=== PATIENT | male | born 1955 | race Caucasian/White ===

== ENCOUNTER 2023-03-24 08:07 | Outpatient (OUT) | payer MEDICARE, BC, SELFPAY | END 2023-03-24 08:08 | disposition home or self-care (01) | LOC: VC 08:08 | PROVIDERS: PCP Radiology Diagnostic Radiology; Visit Provider Radiology Diagnostic Radiology | DX: I83.813 Varicose veins of bilateral lower extremities with pain (principal) ==

== ENCOUNTER 2023-04-06 12:21 | Outpatient (OUT) | payer MEDICARE, BC, SELFPAY ==
--- NOTE | 2023-04-06 12:30 | VEIN_ITS ---
Patient: ELLYN LOW Exam Date: 04/06/2023 : 1955 Gender:M Ordering : DR ALMA ROSA KEARNS M.D. Admission #: [id number] Family : Order #: [id number] CLICK HERE TO VIEW EXAM RADIOLOGY REPORT PROCEDURE: VC EXT VENOUS REFLUX IRMA LMTD COMPARISON: None. INDICATIONS: I83.813 Pain due to varicose veins of bilateral leg veins TECHNIQUE: Duplex imaging of the lower extremity to assess the deep and superficial venous system for the presence of deep or superficial venous incompetence and to document the location and severity of disease. The study includes evaluation of the great saphenous vein (GSV), anterior accessory saphenous vein (AASV) and small saphenous vein (SSV). Patient scanned in reverse Trendelenburg and standing. FINDINGS: RIGHT LOWER EXTREMITY: Saphenofemoral Junction Reflux: Yes 10.2mm 4.4 sec GSV: Diam (mm) Reflux/ Time (sec) Proximal Thigh 7.6 Yes 2.7 Mid Thigh 4.3 Yes 3.1 Distal Thigh 4.3 Yes 3.0 Prox Calf 4.3 Yes 3.9 Mid Calf 4.7 Yes 2.9 Saphenopopliteal Junction Reflux: 4.3mm Yes 0.6 SSV: Proximal Calf 5.0 Yes 1.1 Mid Calf 4.1 Yes 0.8 AASV: Proximal Thigh 6.3 Yes 1.1 Mid Thigh 4.0 Yes 1.9 Distal Thigh Thrombi: No acute or chronic thrombus. Compressibility: Normal. Flow: Mild deep venous reflux. Preforator:Dist medial lower leg 2.6 mm with 1.7s reflux. Mid medial lower leg 3.7mm with 1.0s reflux. Tech Note: Incompetent varicose vein distal medial lower leg measures 4.0 mm with 4.2s reflux. Proximal medial lower leg varicose vein measures 4.0 mm with 2.6s reflux. Proximal anterior lower leg varicosity measures 3.0 mm with 2.9s reflux. Varicose vein mid anterior lateral lower leg measures 4.0 mm with 0.9s reflux. LEFT LOWER EXTREMITY: Saphenofemoral Junction Reflux: Yes 9.4 mm 4.4 sec GSV: Diam (mm) Reflux/Time (sec) Proximal Thigh 5.5 No Mid Thigh 3.5 Yes 0.2 Distal Thigh 3.8 No Prox Calf 3.3 Yes 0.2 Mid Calf 2.8 Yes 0.5 Saphenopopliteal Junction Relux: 2.0 mm Yes 0.2 SSV: Proximal Calf 1.8 Yes 0.3 Mid Calf 3.5 Yes 0.7 AASV: Proximal Thigh 4.4 Yes 2.5 Mid Thigh 3.5 Yes 0.3 Distal Thigh Thrombi: No acute or chronic thrombus. Compressibility: Normal. Flow: Moderate deep venous reflux. Gate Attendant: Mid posterior calf 4.1 mm with 0.8s reflux. Distal medial lower leg 4.3 mm with 4.8s reflux. Mid medial lower leg 3.2 mm with 0.8s reflux. Tech Note: Thigh extension of left SSV. Incompetent varicose vein mid medial lower leg measures 3.1 mm with 2.7s reflux. Proximal medial lower leg varicose vein measures 2.2 mm with 2.8s reflux. CONCLUSION: 1. Abnormally dilated and incompetent right great saphenous vein, right anterior accessory saphenous vein, and borderline right small saphenous vein. Multiple dilated and incompetent branch saphenous varicosities within the right leg. 2. Incompetent, but not abnormally dilated left anterior accessory saphenous vein. Dictated by: Og Pruitt M.D. on 04/06/2023 at 13:35 Approved by: Og Pruitt M.D. on 04/06/2023 at 14:11
--- NOTE | 2023-04-06 12:30 | VEIN_ITS ---
Patient: ELLYN LOW Exam Date: 04/06/2023 : 1955 Gender:M Ordering : DR ALMA ROSA KEARNS M.D. Admission #: [id number] Family : Order #: [id number] CLICK HERE TO VIEW EXAM RADIOLOGY REPORT PROCEDURE: FACILITY [facility] VEIN CENTER - OFFICE VISIT INITIAL COMPARISON: None. PROGRESS NOTES: [age] year old male who presents with a 10 year history of dilated bulging veins, discolored veins, leg pain, swelling, itching, heaviness. The patient's right leg symptoms are worse than the left. There has been a progression of symptoms over past 10 years. This increases with prolonged leg dependency. The patient describes an improvement with rest, elevation, and exercise. The patient denies any signs and symptoms to suggest arterial ischemia. The patient describes a family history varicose veins on maternal side. The patient has drinking and smoking history of : Occasional alcohol consumption; no tobacco use. Patient has a past medical history significant for hypertension, diabetes mellitus, asthma. The patient denies a history of deep venous thrombus or pulmonary embolus. See separate history and physical for medication list. No prior treatment for varicose or spider veins. Past treatment included use of compression stockings. After review of nurse notes, history and physical exam I discussed at length the pathophysiology of venous hypertension and possible treatments, therapies and strategies available. We discussed at length the importance of elevating the lower extremities above the level of the heart, increased physical activity and compression stocking use. Ultrasound venous reflux study performed today was discussed at length with the patient. The report demonstrates dilated and incompetent right great saphenous vein, anterior accessory saphenous vein, and borderline small saphenous vein. Multiple dilated and incompetent branch saphenous varicosities on the right; a few on left.. PHYSICAL EXAM: The right leg demonstrates multiple varicosities, numerous reticular veins and spider veins, no ulceration, mild edema, no skin discoloration. The left leg demonstrates a few varicosities, multiple reticular veins and spider veins, no ulceration, no edema, no skin discoloration. Both thighs, legs and feet were symmetrically warm to the touch. Good posterior tibial and dorsalis pedis pulses were present bilaterally. VEIN/ Facility [facility] Comprehensive IMPRESSION: 1. Right lower extremity venous insufficiency 2. Bilateral, but predominantly right lower extremity varicose veins 3. Mild right lower extremity subcutaneous edema 4. No flow significant arterial disease 5. CEAP: C3, EC, AP, FL PLAN: 1. Continued use of compression stockings 2. Elevated legs and increased physical activity symptomatic relief 3. Endovenous laser ablation of right great saphenous and anterior accessory saphenous veins. Follow-up ultrasound evaluation of right small saphenous vein after treatment of the great and anterior accessory saphenous veins. 4. Microfoam chemical ablation of branch saphenous varicosities bilaterally. 5. Sclerotherapy of numerous prominent reticular veins and spider veins bilaterally. Nurse notes, history and physical were reviewed and confirmed, see attached forms. The nurse was present throughout the physical exam and consultation Dictated by: Og Pruitt M.D. on 04/06/2023 at 14:11 Approved by: Og Pruitt M.D. on 04/06/2023 at 14:22
== END 2023-04-06 12:22 | disposition home or self-care (01) ==
LOC: VC 12:21
PROVIDERS: PCP Radiology Diagnostic Radiology; Visit Provider Radiology Diagnostic Radiology
DX: I83.813 Varicose veins of bilateral lower extremities with pain (principal)
CPT/HCPCS: 93970; G0463

== ENCOUNTER 2023-04-10 12:24 | Outpatient (OUT) | payer MEDICARE, BC, SELFPAY ==
--- NOTE | 2023-04-10 | VEIN_ITS ---
[address] [address] Patient Name: ELLYN LOW MRN: [id number] date: 1955 Sex: M Assigned Patient Location: Current Patient Location: Accession/Order Number: [id number] Exam Date: 04/10/2023 12:45 Report Date: 04/10/2023 13:37 At the request of: ALMA ROSA KEARNS Procedure: VC Endovenous Ablation 1VeinRT EXAMINATION: VC Endovenous Ablation 1Vein, right great saphenous vein HISTORY: Pain due to varicose veins of bilateral legs I83.813 COMPARISON: No relevant comparison available. TECHNIQUE: The risks and benefits of the procedure had been previously discussed, and were rediscussed at length. Informed written consent was obtained. [facility] and Colton Ojeda assisted. Time out procedure was performed. The right lower extremity was prepared and draped in the usual sterile fashion to allow knee flexion in the sterile field. Duplex ultrasound probe was draped in a sterile cover, sterile transmission gel was used. Venous mapping was performed with the areas of dilation and large tributaries marked. The total length was 61 cm from the entry 6 cm above the medial malleolus to 3 cm below the saphenofemoral junction. The diameter of the greater saphenous vein ranged from 4-8 mm. A 30 gauge needle and 1% buffered lidocaine was used to anesthetize the entry site. A 4 mm incision was made with a scalpel and the saphenous vein was entered percutaneously under direct ultrasound guidance with a micropuncture set, a single stick was successful in gaining access. A micro-guide wire was inserted and the needle removed. A micro-set including a dilator was inserted over the microwire and the needle and dilator were removed. A 0.018 guide wire was inserted through the micro-set and threaded through the saphenous vein to the saphenofemoral junction. The dilator was removed and an introducer sheath was inserted over the wire until the end of the sheath entered the saphenofemoral junction. The dilator and wire were removed and the 600 micron fiber was introduced and placed and positioned so that it extended beyond the sheath and was 3 cm peripheral to the saphenofemoral femoral junction. Final position of the fiber was determined by ultrasound guidance and duplex imaging. Tumescent anesthetic was delivered by ultrasound guidance. 250 cc of fluid was delivered along the entire course of the saphenous vein. The solution consisted of 1000 cc of normal saline with 40 mL of 1% lidocaine and 20 mL of sodium bicarbonate. A final positioning check was made. The energy source was turned on by means of the foot pedal and the fiber and sheath were withdrawn. The total number of Joules delivered was 2922. The laser was active for 365 seconds under continuous pulse, average laser use of 8 J. Laser start time 1310 04/10/2023 . Laser stop time 1317 04/10/2023 . A duplex ultrasound revealed compressibility and flow at the saphenofemoral junction immediately after the procedure. Hemostasis at the access site was achieved. The skin incision of the saphenous vein was closed with a 4 x 4. A compression stocking was applied. Postop instructions were given. A follow up appointment was recommended and scheduled. The patient tolerated the procedure well and was discharged in good condition . VEIN/VC Endovenous Ablation 1VeinRT IMPRESSION: Technically successful endovenous laser ablation of the right great saphenous vein Electronically authenticated by: ALMA ROSA KEARNS Date: 04/10/2023 13:37
[2023-04-10] MEDS: LIDOCAINE HCL 10 ML, SODIUM BICARBONATE 1 MEQ INJ (13:05)
[2023-04-10] MEDS: 0.9 % SODIUM CHLORIDE 500 ML, LIDOCAINE HCL 20 ML, SODIUM BICARBONATE 10 MEQ INJ (13:06)
== END 2023-04-10 12:25 | disposition home or self-care (01) ==
LOC: VC 12:24
PROVIDERS: PCP Radiology Diagnostic Radiology; Visit Provider Radiology Diagnostic Radiology
DX: I83.813 Varicose veins of bilateral lower extremities with pain (principal)
CPT/HCPCS: 36478

== ENCOUNTER 2023-04-15 09:24 | Outpatient (OUT) | payer MEDICARE, BC, SELFPAY ==
--- NOTE | 2023-04-15 | VEIN_ITS ---
Patient: ELLYN LOW Exam Date: 04/15/2023 : 1955 Gender:M Ordering : DR ALMA ROSA KEARNS M.D. Admission #: [id number] Family : Order #: [id number] CLICK HERE TO VIEW EXAM RADIOLOGY REPORT PROCEDURE: VC EXT VENOUS RT LMTD COMPARISON: None. INDICATIONS: Phlebitis of superficial veins of rt lower extremity I80.01 TECHNIQUE: Lower extremity lawson scale and Duplex Doppler evaluation of the deep venous system from the inguinal ligament through the calf veins. FINDINGS: REGION: Right lower extremity. THROMBI: Negative for DVT. Heat induced thrombus in right GSV 2.9 cm from SFJ and extends to distal lower leg. COMPRESSIBILITY: Non-compressible segments. FLOW: Areas of no flow. OTHER: CONCLUSION: 1. Successful post ablation occlusion of right great saphenous vein. Dictated by: Og Pruitt M.D. on 04/15/2023 at 10:29 Approved by: Og Pruitt M.D. on 04/15/2023 at 10:31
--- NOTE | 2023-04-15 | VEIN_ITS ---
Patient: ELLYN LOW Exam Date: 04/15/2023 : 1955 Gender:M Ordering : DR ALMA ROSA KEARNS M.D. Admission #: [id number] Family : Order #: [id number] CLICK HERE TO VIEW EXAM RADIOLOGY REPORT PROCEDURE: FACILITY EST L[facility]D VEIN CENTER - OFFICE VISIT FOLLOW UP COMPARISON: None. PROGRESS NOTES: The patient reports improvement in leg symptoms. There has been interval reduction in varicosities. The patient has followed our recommendations to walk 20-30 minutes once or twice per day since the procedure. Physical exam demonstrates decrease in varicosities of the leg. Persistent varicosities are identified along the right leg. Review of the ultrasound performed the same day demonstrates occlusive thrombus extending throughout the treated vein(s), see separate report, consistent with a successful ablation. No thrombus extending into or beyond the saphenofemoral junction. The patient expressed a desire to proceed with treatment of remaining incompetent varicosities. The patient was informed that treatment was a process and would require several procedures/sessions. VEIN/ Facility EST LMTD IMPRESSION: 1. Successful ablation of the right great saphenous vein(s). 2. Persistent incompetent veins and right lower extremity symptoms. PLAN: Endovenous laser ablation of right anterior accessory saphenous vein. Nurse notes, history and physical were reviewed and confirmed, see attached forms. The nurse was present throughout the physical exam and consultation Dictated by: Og Pruitt M.D. on 04/15/2023 at 10:31 Approved by: Og Pruitt M.D. on 04/15/2023 at 10:33
== END 2023-04-15 09:25 | disposition home or self-care (01) ==
LOC: VC 09:25
PROVIDERS: PCP Radiology Diagnostic Radiology; Visit Provider Radiology Diagnostic Radiology
DX: I80.01 Phlebitis and thrombophlebitis of superficial vessels of right lower extremity (principal); I83.813 Varicose veins of bilateral lower extremities with pain
CPT/HCPCS: 93971; G0463

== ENCOUNTER 2023-04-24 12:20 | Outpatient (OUT) | payer MEDICARE, BC, SELFPAY ==
--- NOTE | 2023-04-24 | VEIN_ITS ---
[address] [address] Patient Name: ELLYN LOW MRN: [id number] date: 1955 Sex: M Assigned Patient Location: Current Patient Location: Accession/Order Number: [id number] Exam Date: 04/24/2023 12:35 Report Date: 04/24/2023 13:54 At the request of: ALMA ROSA KEARNS Procedure: VC Endovenous Ablation 1VeinRT EXAMINATION: VC Endovenous Ablation 1Vein right anterior accessory saphenous vein HISTORY: Pain due to varicose veins of bilateral legs I83.813 COMPARISON: No relevant comparison available. TECHNIQUE: The risks and benefits of the procedure had been previously discussed, and were rediscussed at length. Informed written consent was obtained. Jesenia Pedroza and Colton Ojeda assisted. Time out procedure was performed. The right lower extremity was prepared and draped in the usual sterile fashion to allow knee flexion in the sterile field. Duplex ultrasound probe was draped in a sterile cover, sterile transmission gel was used. Venous mapping was performed with the areas of dilation and large tributaries marked. The total length was 18 cm from the entry mid thigh to 3 cm below the saphenofemoral junction. The diameter of the greater saphenous vein ranged from 4-7 mm. A 30 gauge needle and 1% buffered lidocaine was used to anesthetize the entry site. A 4 mm incision was made with a scalpel and the saphenous vein was entered percutaneously under direct ultrasound guidance with a micropuncture set, a single stick was successful in gaining access. A micro-guide wire was inserted and the needle removed. A micro-set including a dilator was inserted over the microwire and the needle and dilator were removed. A 0.018 guide wire was inserted through the micro-set and threaded through the saphenous vein to the saphenofemoral junction. The dilator was removed and an introducer sheath was inserted over the wire until the end of the sheath entered the saphenofemoral junction. The dilator and wire were removed and the 600 micron fiber was introduced and placed and positioned so that it extended beyond the sheath and was 3 cm peripheral to the saphenofemoral femoral junction. Final position of the fiber was determined by ultrasound guidance and duplex imaging. Tumescent anesthetic was delivered by ultrasound guidance. 125 cc of fluid was delivered along the entire course of the saphenous vein. The solution consisted of 1000 cc of normal saline with 40 mL of 1% lidocaine and 20 mL of sodium bicarbonate. A final positioning check was made. The energy source was turned on by means of the foot pedal and the fiber and sheath were withdrawn. The total number of Joules delivered was 788. The laser was active for 98 seconds under continuous pulse, average laser use of 8 J. Laser start time 1:06 PM 04/24/2023 . Laser stop time 1:08 PM and 04/24/2023 . A duplex ultrasound revealed compressibility and flow at the saphenofemoral junction immediately after the procedure. Hemostasis at the access site was achieved. The skin incision of the saphenous vein was closed with a 4 x 4. A compression stocking was applied. Postop instructions were given. A follow up appointment was recommended and scheduled. The patient tolerated the procedure well and was discharged in good condition . VEIN/VC Endovenous Ablation 1VeinRT IMPRESSION: Technically successful endovenous laser ablation of the right anterior accessory saphenous vein Electronically authenticated by: ALMA ROSA KEARNS Date: 04/24/2023 13:54
[2023-04-24] MEDS: 0.9 % SODIUM CHLORIDE 500 ML, LIDOCAINE HCL 20 ML, SODIUM BICARBONATE 10 MEQ INJ (12:56)
== END 2023-04-24 12:21 | disposition home or self-care (01) ==
LOC: VC 12:20
PROVIDERS: PCP Radiology Diagnostic Radiology; Visit Provider Radiology Diagnostic Radiology
DX: I83.813 Varicose veins of bilateral lower extremities with pain (principal)
CPT/HCPCS: 36478

== ENCOUNTER 2023-04-30 12:48 | Outpatient (OUT) | payer MEDICARE, BC, SELFPAY ==
--- NOTE | 2023-04-30 | VEIN_ITS ---
Patient: ELLYN LOW Exam Date: 04/30/2023 : 1955 Gender:M Ordering : DR ALMA ROSA KEARNS M.D. Admission #: [id number] Family : Order #: [id number] CLICK HERE TO VIEW EXAM RADIOLOGY REPORT PROCEDURE: [facility] EST [facility] VEIN CENTER - OFFICE VISIT FOLLOW UP [facility]. PROGRESS NOTES: The patient reports improvement in leg symptoms. There has been interval reduction in varicosities. The patient has followed our recommendations to walk 20-30 minutes once or twice per day since the procedure. Physical exam demonstrates decrease in varicosities of the leg. Persistent branch saphenous varicosities are identified along the legs bilaterally. Review of the ultrasound performed the same day demonstrates occlusive thrombus extending throughout the treated vein(s), see separate report, consistent with a successful ablation. No thrombus extending into or beyond the saphenofemoral junction. The patient expressed a desire to proceed with treatment of dilated and incompetent branch saphenous varicosities. The patient was informed that treatment was a process and would require several procedures/sessions. VEIN/[facility] EST LMTD IMPRESSION: 1. Successful ablation of the right anterior accessory saphenous vein(s). 2. Persistent incompetent varicose veins and lower extremity symptoms. PLAN: 1. Microfoam chemical ablation of dilated and incompetent branch saphenous varicosities of lower extremities. Nurse notes, history and physical were reviewed and confirmed, see attached forms. The nurse was present throughout the physical exam and consultation Dictated by: Og Pruitt M.D. on 04/30/2023 at 13:58 Approved by: Og Pruitt M.D. on 04/30/2023 at 13:59
--- NOTE | 2023-04-30 | VEIN_ITS ---
Patient: ELLYN LOW Exam Date: 04/30/2023 : 1955 Gender:M Ordering : DR ALMA ROSA KEARNS M.D. Admission #: [id number] Family : Order #: [id number] CLICK HERE TO VIEW EXAM RADIOLOGY REPORT PROCEDURE: VC EXT VENOUS RT LMTD COMPARISON: VC EXT VENOUS RT LMTD, 04/15/2023. INDICATIONS: Phlebitis of superficial veins of rt. lower extremity I80.01 TECHNIQUE: Lower extremity lawson scale and Duplex Doppler evaluation of the deep venous system from the inguinal ligament through the calf veins. FINDINGS: REGION: Right lower extremity. THROMBI: Negative for DVT. Heat induced thrombus visualized 2.8 cm from the SFJ. The heat induced thrombus extends through the AASV to mid thigh. COMPRESSIBILITY: Non-compressible segments. FLOW: Areas of no flow. OTHER: CONCLUSION: 1. Successful post ablation occlusion of right anterior accessory saphenous vein. Dictated by: Og Pruitt M.D. on 04/30/2023 at 13:57 Approved by: Og Pruitt M.D. on 04/30/2023 at 13:58
== END 2023-04-30 12:49 | disposition home or self-care (01) ==
LOC: VC 12:48
PROVIDERS: PCP Radiology Diagnostic Radiology; Visit Provider Radiology Diagnostic Radiology
DX: I80.01 Phlebitis and thrombophlebitis of superficial vessels of right lower extremity (principal)
CPT/HCPCS: 93971; G0463

== ENCOUNTER 2023-05-05 13:53 | Outpatient (OUT) | payer MEDICARE, BC, SELFPAY ==
--- NOTE | 2023-05-05 | VEIN_ITS ---
[address] [address] Patient Name: ELLYN LOW MRN: [id number] date: 1955 Sex: M Assigned Patient Location: Current Patient Location: Accession/Order Number: [id number] Exam Date: 05/05/2023 14:00 Report Date: 05/05/2023 16:02 At the request of: ALMA ROSA KEARNS Procedure: VC INJ Foam Sclerosant WUS TRAFFIC COUNTER PROCEDURE: VC INJ Foam Sclerosant WUS TRAFFIC COUNTER HISTORY: Pain due to varicose veins of bilateral legs I83.813 Pre-operative Diagnosis: CEAP class C3 venous insufficiency with pain, tenderness, edema and incompetent branch saphenous vein(s), chronic venous insufficiency right leg secondary to venous incompetence Post-operative Diagnosis: CEAP class C3 venous insufficiency with pain, tenderness, edema and incompetent branch saphenous vein(s), chronic venous insufficiency right leg secondary to venous incompetence Procedure Performed: 1. Ultrasound-guided microfoam chemical ablation with Varithenaregistered 2. Intraoperative ultrasound guidance Physician: Lana Pruitt M.D. Anesthesia: None Indications for Procedure: 67 year old male. Symptoms including lower extremity pain, cramping, swelling, discolored bulging veins for many years despite conservative medical therapy including medical compression stockings, exercise and analgesics. Prior procedures include endovenous laser ablation. Multiple incompetent varicosities of the right leg. Duplex scan showed reflux and enlarged diameters up to 4 mm. The patient underwent informed consent including management options where the complications of infection, bleeding, pain, and skin injury were discussed. Particular attention was spent discussing thrombus extension and deep vein thrombosis as well as the possibility of pulmonary embolus and treatment with oral or injectable blood thinners. Procedure: The patient walked to the procedure room. All applicable staff donned appropriate apparel. A procedure timeout was performed to confirm correct patient, correct extremity, correct procedure, and correct room set-up including presence of all applicable supplies, devices, and drugs. A duplex ultrasound, performed by myself confirmed the location and incompetence of branch saphenous varicosities and their course was marked on the skin together with the dilated tributaries. The extent of treatment of the vein and the associated varicosities was determined through ultrasound mapping. The skin was prepped and then punctured with a butterfly needle and advanced under ultrasound guidance. The Varithenaregistered canister was activated and the canister was primed and purged as required in the instructions for use. Varithenaregistered was drawn into a sterile syringe. Varithenaregistered was slowly administered at 0.5-1.0 cc/second with close observation by ultrasound of its course in the vessels. Total volume utilized was: 7 mL (4 mL injected into a 4 mm varicosity of the lateral mid thigh; 3 mL into a 3 mm varicosity of the posterior proximal calf. Following administration of Varithenaregistered the leg was elevated and the patient was asked to repeatedly dorsiflex the ankle to limit flow of Varithenaregistered into perforating veins. Once appropriate spasm had been confirmed in the treated veins, the vascular catheter was removed from the leg and light pressure was applied over the puncture site for hemostasis. The common femoral and deep superficial veins were then evaluated for flow and compressibility prior to dressing placement. The lower extremity was kept elevated at 45 degrees above the horizontal and cording material was applied over the saphenous segments and tributaries to allow for eccentric compression over the target vessels including the targeted saphenous vein(s). A multilayer dressing was applied consisting of foam pads, coban and thigh-high 20-30 mm Hg compression elastic support hose were placed on the patient. The leg was lowered only after compression had been applied and the patient was immediately ambulatory. The patient ambulated 10 minutes under supervision and was without apparent concerns at time of release. Post-care instructions include advising patient to keep post-treatment bandages in place and dry for 48 hours, avoid extended periods of inactivity, avoid heavy exercise for one week, wear compression stockings on the treated leg continuously for two weeks, to walk daily for 10 minutes over the next month. The patient was instructed to take an anti-inflammatory medicine as needed and to follow up for color duplex scan of the Saphenous veins, the treated branch saphenous varicosities, the adjacent deep veins, and additional treatment within 7 days. PERSONNEL: Electronically authenticated by: LANA PRUITT Date: 05/05/2023 16:02
== END 2023-05-05 13:54 | disposition home or self-care (01) ==
LOC: VC 13:53
PROVIDERS: PCP Radiology Diagnostic Radiology; Visit Provider Radiology Diagnostic Radiology
DX: I83.813 Varicose veins of bilateral lower extremities with pain (principal)
CPT/HCPCS: 36466

== ENCOUNTER 2023-05-12 13:52 | Outpatient (OUT) | payer MEDICARE, BC, SELFPAY ==
--- NOTE | 2023-05-12 13:53 | VEIN_ITS ---
Patient: ELLYN LOW Exam Date: 05/12/2023 : 1955 Gender:M Ordering : DR JONAS LOVE M.D. Admission #: [id number] Family : Order #: [id number] CLICK HERE TO VIEW EXAM RADIOLOGY REPORT PROCEDURE: VC EXT VENOUS RT LMTD COMPARISON: VC EXT VENOUS RT LMTD, 04/30/2023. VC EXT VENOUS RT LMTD, 04/15/2023. INDICATIONS: I80.01 Phlebitis of superficial veins of rt lower extremity TECHNIQUE: Lower extremity lawson scale and Duplex Doppler evaluation of the deep venous system from the inguinal ligament through the calf veins. FINDINGS: REGION: Right lower extremity. THROMBI: Negative for DVT. Varithena induced thrombus visualized at mid/med thigh and prox/lateral calf. COMPRESSIBILITY: Non-compressible segments. FLOW: Areas of absent flow corresponding to thrombus. OTHER: No varicose veins remain CONCLUSION: Post ablation occlusion of treated right leg varicose veins. Dictated by: Jonas Love MD on 05/12/2023 at 14:18 Approved by: Jonas Love MD on 05/12/2023 at 14:19
--- NOTE | 2023-05-12 13:53 | VEIN_ITS ---
Patient: ELLYN LOW Exam Date: 05/12/2023 : 1955 Gender:M Ordering : DR JONAS LOVE M.D. Admission #: [id number] Family : Order #: [id number] CLICK HERE TO VIEW EXAM RADIOLOGY REPORT PROCEDURE: FACILITY EST LMTD VEIN CENTER - OFFICE VISIT FOLLOW UP COMPARISON: FACILITY EST LMTD, 04/30/2023. FACILITY EST LMTD, 04/15/2023. PROGRESS NOTES: The patient reports improvement in leg symptoms. The patient had no problems funneling of micro foam chemical ablation right leg varicosities. There has been interval reduction in varicosities. The patient did not require oral analgesics. The patient has worn his compression stocking as directed. The patient has followed our recommendations to walk 20-30 minutes once or twice per day since the procedure. Physical exam demonstrates scattered thrombosed varicose veins. Remaining reticular and spider veins are observed. Areas of mild hemosiderin staining. This was discussed with the patient and I recommended mechanical sunblock or covering from sun exposure to prevent permanent hemosiderin staining or Review of the ultrasound performed the same day demonstrates occlusive thrombus extending throughout the treated right leg varicose veins. No significant residual varicose veins. Treatment of the right small saphenous and left anterior accessory saphenous vein are deferred at this time as the patient has no discomfort in these regions. The patient expressed a desire to proceed with treatment of incompetent left leg varicose veins with micro foam chemical ablation. VEIN/ Facility EST LMTD IMPRESSION: 1. Successful ablation of treated incompetent right leg varicose veins 2. Persistent incompetent left leg varicose veins. PLAN: Micro foam chemical ablation of the left leg Nurse notes, history and physical were reviewed and confirmed, see attached forms. The nurse was present throughout the physical exam and consultation Dictated by: Jonas Love MD on 05/12/2023 at 14:34 Approved by: Jonas Love MD on 05/12/2023 at 14:36
== END 2023-05-12 13:53 | disposition home or self-care (01) ==
PROVIDERS: PCP Radiology Diagnostic Radiology; Visit Provider Radiology Diagnostic Radiology
DX: I80.01 Phlebitis and thrombophlebitis of superficial vessels of right lower extremity (principal)
CPT/HCPCS: 93971; G0463

== ENCOUNTER 2023-05-22 09:51 | Outpatient (OUT) | payer MEDICARE, BC, SELFPAY ==
--- NOTE | 2023-05-22 10:09 | VEIN_ITS ---
[address] [address] Patient Name: ELLYN LOW MRN: [id number] date: 1955 Sex: M Assigned Patient Location: Current Patient Location: Accession/Order Number: [id number] Exam Date: 05/22/2023 10:15 Report Date: 05/22/2023 12:39 At the request of: ALMA ROSA KEARNS Procedure: VC INJ Foam Sclerosant WUS PET CARE ATTENDANT PROCEDURE: VC INJ Foam Sclerosant WUS PET CARE ATTENDANT COMPARISON: None. HISTORY: I83.813 Painful varicose veins of bilat lower extremities Pre-operative Diagnosis: CEAP class C3 venous insufficiency with pain, tenderness, edema and incompetent left great saphenous vein and varicose veins, chronic venous insufficiency left leg secondary to venous incompetence Post-operative Diagnosis: CEAP class C3 venous insufficiency with pain, tenderness, edema and incompetent left great saphenous vein and varicose veins, chronic venous insufficiency left leg secondary to venous incompetence Procedure Performed: 1. Ultrasound-guided microfoam chemical ablation with Varithenaregistered 2. Intraoperative ultrasound guidance Anesthesia: None Indications for Procedure: 68-year-old male . Symptoms including pain and swelling for many years despite conservative medical therapy including medical compression stockings, exercise and analgesics. Prior procedures include endovenous laser ablation a micropuncture relation. Multiple incompetent varicosities of the left leg. Duplex scan showed reflux and enlarged diameters up to 4 mm. The patient underwent informed consent including management options where the complications of infection, bleeding, pain, and skin injury were discussed. Particular attention was spent discussing thrombus extension and deep vein thrombosis as well as the possibility of pulmonary embolus and treatment with oral or injectable blood thinners. Procedure: The patient walked to the procedure room. All applicable staff donned appropriate apparel. A procedure timeout was performed to confirm correct patient, correct extremity, correct procedure, and correct room set-up including presence of all applicable supplies, devices, and drugs. A duplex ultrasound, performed by myself confirmed the location and incompetence of branch saphenous varicosities and their course was marked on the skin together with the dilated tributaries. The extent of treatment of the vein and the associated varicosities was determined through ultrasound mapping. The skin was prepped and then punctured with a butterfly needle and advanced under ultrasound guidance. The Varithenaregistered canister was activated and the canister was primed and purged as required in the instructions for use. Varithenaregistered was drawn into a sterile syringe. The following injections were made: 5 cc injected into a 5 mm varicose vein distal left great saphenous vein 4 cc injected into a 4 mm varicose vein mid medial left thigh Varithenaregistered was slowly administered at 0.5-1.0 cc/second with close observation by ultrasound of its course in the vessels. Total volume utilized was: 9cc. Following administration of Varithenaregistered the leg was elevated and the patient was asked to repeatedly dorsiflex the ankle to limit flow of Varithenaregistered into perforating veins. Once appropriate spasm had been confirmed in the treated veins, the vascular catheter was removed from the leg and light pressure was applied over the puncture site for hemostasis. The common femoral and deep superficial veins were then evaluated for flow and compressibility prior to dressing placement. The lower extremity was kept elevated at 45 degrees above the horizontal and cording material was applied over the saphenous segments and tributaries to allow for eccentric compression over the target vessels including the targeted saphenous vein(s). A multilayer dressing was applied consisting of foam pads, coban and thigh-high 20-30 mm Hg compression elastic support hose were placed on the patient. The leg was lowered only after compression had been applied and the patient was immediately ambulatory. The patient ambulated 10 minutes under supervision and was without apparent concerns at time of release. Post-care instructions include advising patient to keep post-treatment bandages in place and dry for 48 hours, avoid extended periods of inactivity, avoid heavy exercise for one week, wear compression stockings on the treated leg continuously for two weeks, to walk daily for 10 minutes over the next month. The patient was instructed to take an anti-inflammatory medicine as needed and to follow up for color duplex scan of the Saphenous veins, the treated branch saphenous varicosities, the adjacent deep veins, and additional treatment within 7 days. PERSONNEL: Kavya Anne RN Electronically authenticated by: ALMA ROSA KEARNS Date: 05/22/2023 12:39
== END 2023-05-22 09:52 | disposition home or self-care (01) ==
LOC: VC 09:51
PROVIDERS: PCP Radiology Diagnostic Radiology; Visit Provider Radiology Diagnostic Radiology
DX: I83.813 Varicose veins of bilateral lower extremities with pain (principal)
CPT/HCPCS: 36466

== ENCOUNTER 2023-05-26 08:50 | Outpatient (OUT) | payer MEDICARE, BC, SELFPAY ==
--- NOTE | 2023-05-26 08:51 | VEIN_ITS ---
Patient: ELLYN LOW Exam Date: 05/26/2023 : 1955 Gender:M Ordering : DR ALMA ROSA KEARNS M.D. Admission #: [id number] Family : Order #: [id number] CLICK HERE TO VIEW EXAM RADIOLOGY REPORT PROCEDURE: [facility] EST LMTD VEIN CENTER - OFFICE VISIT FOLLOW UP COMPARISON: [facility], 05/12/2023. PROGRESS NOTES: The patient reports improvement in leg symptoms. There has been interval reduction in varicosities. The patient has followed our recommendations to walk 20-30 minutes once or twice per day since the procedure. Physical exam demonstrates decrease in varicosities of the leg. Persistent prominent reticular and spider veins are identified along the legs bilaterally. Review of the ultrasound performed the same day demonstrates occlusive thrombus extending throughout the treated vein(s), see separate report, consistent with a successful ablation. No thrombus extending into or beyond the saphenofemoral junction. The patient expressed a desire to proceed with treatment of reticular veins and spider veins. The patient was informed that treatment was a process and would require 2-4 procedures/sessions. VEIN/[facility] EST TD IMPRESSION: 1. Successful ablation of the treated incompetent branch saphenous vein(s). 2. Persistent reticular and spider veins bilaterally. PLAN: Bilateral lower extremities sclerotherapy. Nurse notes, history and physical were reviewed and confirmed, see attached forms. The nurse was present throughout the physical exam and consultation Dictated by: Og Pruitt M.D. on 05/26/2023 at 11:05 Approved by: Og Pruitt M.D. on 05/26/2023 at 11:06
--- NOTE | 2023-05-26 08:51 | VEIN_ITS ---
Patient: ELLYN LOW Exam Date: 05/26/2023 : 1955 Gender:M Ordering : DR ALMA ROSA KEARNS M.D. Admission #: [id number] Family : Order #: [id number] CLICK HERE TO VIEW EXAM RADIOLOGY REPORT PROCEDURE: VC EXT VENOUS LT LIMITED COMPARISON: None. INDICATIONS: I80.02 Phlebitis of superficial veins of lt lower extremity TECHNIQUE: Lower extremity lawson scale and Duplex Doppler evaluation of the deep venous system from the inguinal ligament through the calf veins. FINDINGS: REGION: Left lower extremity. THROMBI: Negative for DVT. Varithena induced thrombus visualized at distal GSV and dist/med thigh. COMPRESSIBILITY: Non-compressible segments. FLOW: Areas of no flow. OTHER: No patent varicose veins remain CONCLUSION: 1. Successful post ablation occlusion of treated branch saphenous varicosities. Dictated by: Og Pruitt M.D. on 05/26/2023 at 11:03 Approved by: Og Pruitt M.D. on 05/26/2023 at 11:05
== END 2023-05-26 08:51 | disposition home or self-care (01) ==
PROVIDERS: PCP Radiology Diagnostic Radiology; Visit Provider Radiology Diagnostic Radiology
DX: I80.02 Phlebitis and thrombophlebitis of superficial vessels of left lower extremity (principal)
CPT/HCPCS: 93971; G0463

== ENCOUNTER 2023-06-02 13:48 | Outpatient (OUT) | payer MEDICARE, BC, SELFPAY ==
--- NOTE | 2023-06-02 | VEIN_ITS ---
[address] [address] Patient Name: ELLYN LOW MRN: [id number] date: 1955 Sex: M Assigned Patient Location: VC Current Patient Location: VC Accession/Order Number: [id number] Exam Date: 06/02/2023 13:58 Report Date: 06/02/2023 14:40 At the request of: ALMA ROSA KEARNS Procedure: VC INJ Sclerosing SOLMULT Vein EXAMINATION: VC INJ Sclerosing SOLMULT Vein HISTORY: Pain due to varicose veins of bilateral legs I83.813 COMPARISON: No relevant comparison available. TECHNIQUE: The risks and benefits of the procedure were explained at length to the patient and informed written consent was obtained. Kavya Anne was present and assisted. The procedure was performed under sterile technique. The patient's leg was wrapped with Coban and postprocedural verbal and written instructions provided. SCLEROSANT: 4 cc, 0.5% polidocanol VEIN(S) INJECTED: 25 veins in the right leg VISUALIZATION: Ultrasound was not used to visualize the sclerosant ANESTHESIA: Supercooled air COMPLICATIONS: None VEIN/VC INJ Sclerosing SOLMULT Vein IMPRESSION: Technically successful sclerotherapy as described Electronically authenticated by: ALMA ROSA KEARNS Date: 06/02/2023 14:40
== END 2023-06-02 13:49 | disposition home or self-care (01) ==
LOC: VC 13:48
PROVIDERS: PCP Radiology Diagnostic Radiology; Visit Provider Radiology Diagnostic Radiology
DX: I83.813 Varicose veins of bilateral lower extremities with pain (principal)
CPT/HCPCS: 36471

== ENCOUNTER 2023-06-11 10:57 | Outpatient (OUT) | payer MEDICARE, BC, SELFPAY ==
--- NOTE | 2023-06-11 10:58 | VEIN_ITS ---
[address] [address] Patient Name: ELLYN LOW MRN: [id number] date: 1955 Sex: M Assigned Patient Location: VC Current Patient Location: VC Accession/Order Number: [id number] Exam Date: 06/11/2023 11:00 Report Date: 06/11/2023 13:47 At the request of: ALMA ROSA KEARNS Procedure: VC INJ Sclerosing SOLMULT Vein EXAMINATION: VC INJ Sclerosing SOLMULT Vein HISTORY: Pain due to varicose veins of bilateral legs I83.813 COMPARISON: No relevant comparison available. TECHNIQUE: The risks and benefits of the procedure were explained at length to the patient and informed written consent was obtained. Kavya Anne was present and assisted. The procedure was performed under sterile technique. The patient's leg was wrapped with Coban and postprocedural verbal and written instructions provided. SCLEROSANT: 4 cc, 0.5% polidocanol VEIN(S) INJECTED: 27 veins in the left leg VISUALIZATION: Ultrasound was not used to visualize the sclerosant ANESTHESIA: Supercooled air COMPLICATIONS: None VEIN/VC INJ Sclerosing SOLMULT Vein IMPRESSION: Technically successful sclerotherapy as described Electronically authenticated by: ALMA ROSA KEARNS Date: 06/11/2023 13:47
== END 2023-06-11 10:58 | disposition home or self-care (01) ==
LOC: VC 10:57
PROVIDERS: PCP Radiology Diagnostic Radiology; Visit Provider Radiology Diagnostic Radiology
DX: I83.813 Varicose veins of bilateral lower extremities with pain (principal)
CPT/HCPCS: 36471

== ENCOUNTER 2023-06-17 14:20 | Outpatient (OUT) | payer MEDICARE, BC, SELFPAY ==
--- NOTE | 2023-06-17 14:23 | VEIN_ITS ---
[address] [address] Patient Name: ELLYN LOW MRN: [id number] date: 1955 Sex: M Assigned Patient Location: Current Patient Location: Accession/Order Number: [id number] Exam Date: 06/17/2023 14:20 Report Date: 06/18/2023 08:10 At the request of: ALMA ROSA KEARNS Procedure: VC INJ Sclerosing SOLMULT Vein EXAMINATION: VC INJ Sclerosing SOLMULT Vein HISTORY: Pain due to varicose veins of bilateral legs I83.813 The risks and benefits of the procedure were explained at length to the patient and informed written consent was obtained. The procedure was performed under sterile technique. The patient's leg was wrapped with Coban and postprocedural verbal and written instructions provided. Colton Ojeda RN was present and assisted. SCLEROSANT: 2mL 0.5% Polidocanol. VEIN(S) INJECTED: 29 veins in the right leg. VISUALIZATION: Ultrasound was not used to visualize the sclerosant. ANESTHESIA: Supercooled air. COMPLICATIONS: None. Electronically authenticated by: LANA KEMP Date: 06/18/2023 08:10
== END 2023-06-17 14:21 | disposition home or self-care (01) ==
LOC: VC 14:20
PROVIDERS: PCP Radiology Diagnostic Radiology; Visit Provider Radiology Diagnostic Radiology
DX: I83.813 Varicose veins of bilateral lower extremities with pain (principal)
CPT/HCPCS: 36471

== ENCOUNTER 2023-07-09 09:46 | Outpatient (OUT) | payer MEDICARE, BC, SELFPAY ==
--- NOTE | 2023-07-09 | VEIN_ITS ---
[address] [address] Patient Name: ELLYN LOW MRN: [id number] date: 1955 Sex: M Assigned Patient Location: VC Current Patient Location: VC Accession/Order Number: [id number] Exam Date: 07/09/2023 09:50 Report Date: 07/09/2023 12:14 At the request of: ALMA ROSA KEARNS Procedure: VC INJ Sclerosing SOLMULT Vein EXAMINATION: VC INJ Sclerosing SOLMULT Vein HISTORY: Pain due to varicose veins of bilateral legs I83.813 COMPARISON: No relevant comparison available. TECHNIQUE: The risks and benefits of the procedure were explained at length to the patient and informed written consent was obtained. Colton Ojeda was present and assisted. The procedure was performed under sterile technique. The patient's leg was wrapped with Coban and postprocedural verbal and written instructions provided. SCLEROSANT: 4 cc, 0.5% polidocanol VEIN(S) INJECTED: 23 veins in the left leg VISUALIZATION: Ultrasound was not used to visualize the sclerosant ANESTHESIA: Supercooled air COMPLICATIONS: None VEIN/VC INJ Sclerosing SOLMULT Vein IMPRESSION: Technically successful sclerotherapy as described Electronically authenticated by: ALMA ROSA KEARNS Date: 07/09/2023 12:14
== END 2023-07-09 09:47 | disposition home or self-care (01) ==
LOC: VC 09:46
PROVIDERS: PCP Radiology Diagnostic Radiology; Visit Provider Radiology Diagnostic Radiology
DX: I83.813 Varicose veins of bilateral lower extremities with pain (principal)
CPT/HCPCS: 36471

== ENCOUNTER 2023-07-27 09:45 | Outpatient (OUT) | payer MEDICARE, BC, SELFPAY ==
--- NOTE | 2023-07-27 09:48 | VEIN_ITS ---
[address] [address] Patient Name: ELLYN LOW MRN: [id number] date: 1955 Sex: M Assigned Patient Location: Current Patient Location: Accession/Order Number: [id number] Exam Date: 07/27/2023 09:48 Report Date: 07/27/2023 11:56 At the request of: ALMA ROSA KEARNS Procedure: VC INJ Sclerosing SOLMULT Vein EXAMINATION: VC INJ Sclerosing SOLMULT Vein HISTORY: Pain due to varicose veins of bilateral legs I83.813 The risks and benefits of the procedure were explained at length to the patient and informed written consent was obtained. The procedure was performed under sterile technique. The patient's leg was wrapped with Coban and postprocedural verbal and written instructions provided. Colton Ojeda RN was present and assisted. SCLEROSANT: 2mL 0.5% Polidocanol. VEIN(S) INJECTED: 24 veins in the left leg. VISUALIZATION: Ultrasound was not used to visualize the sclerosant. ANESTHESIA: Supercooled air. COMPLICATIONS: None. Electronically authenticated by: LANA KEMP Date: 07/27/2023 11:56
== END 2023-07-27 09:46 | disposition home or self-care (01) ==
LOC: VC 09:45
PROVIDERS: PCP Radiology Diagnostic Radiology; Visit Provider Radiology Diagnostic Radiology
DX: I83.813 Varicose veins of bilateral lower extremities with pain (principal)
CPT/HCPCS: 36471

== ENCOUNTER 2023-09-22 11:23 | Outpatient (OUT) | payer MEDICARE, BC, SELFPAY ==
--- OUTSIDE RECORDS SUMMARY | 2023-09-22 11:26 | XMS_ITS | CCD ---
Author Name Unknown Address [address] [place] [address] Organization [facility] Care Team Providers Care Section Plotter Operator Name Role Phone Kavya Soriano Unavailable Unavailable Kavya Soriano Unavailable Unavailable Kanu Abraham [place] Unavailable Unav ailable Kanu Abraham Primary Care Physician Darleen Mcdaniel Unavailable Unavailable Bhupinder GUY Admitting Unavailable NONE, XXXX Referring Unavailable Bhupinder GUY Attending Unavailable Kanu Abraham Attending Unavailable AbrahamKanu Admitting Unavailable Bhupinder GUY Attending Unavailable Bhupinder GUY Admitting Unavailable Bhupinder GUY Attending Unavailable Bhupinder GUY Admitting Unavailable NONE, XXXX Referring Unavailable KANU ABRAHAM Attending Unavailable COBOSSHANTELL LI Attending Unavailable ABRAHAMKANU Referring Unavailable MEDVESANNIE Attending Unavailable ABRAHAMKANU SONG Referring Unavailable COBOSSHANTELL LI Attending Unavailable ABRAHAMKANU Referring Unavailable ABRAHAMKANU SONG Attending Unavailable MEDVESANNIE Attending Unavailable ABRAHAMKANU SONG Referring Unavailable MEDVESANNIE Attending Unavailable ABRAHAMKANU SONG Referring Unavailable Allergies Allergy Classification Reported Allergen(s) Allergy Type Date of Onset Reaction(s) Facility (10 sources) Acetaminophen / HYDROcodone; Translations: [acetaminophen-hy drocodone] Drug Allergy dizziness [facility] (10 sources) acetaminophen / propoxyphene; Translations: [acetaminophen-pr opoxyphene] Drug Allergy Dizziness (finding) [facility] (10 sources) Codeine; Translations: [codeine] Drug Allergy dizziness [facility] (16 sources) Meperidine; Translations: [meperidine] Drug Allergy Dizziness (finding) [facility] (16 sources) Sulindac; Translations: [sulindac] Drug Allergy Unknown (qualifier value) [facility] (6 sources) metFORMIN; Translations: [metformin] Drug Allergy 2 diarrhea [facility] (1 source) Etodolac; Translations: [Lodine] Drug Allergy [facility] (1 source) levoFLOXacin; Translations: [Levaquin] Drug Allergy [facility] (1 source) nabumetone; Translations: [Relafen] Drug Allergy [facility] (1 source) Naproxen; Translations: [Naprosyn] Drug Allergy [facility] Medications Current Medications Medication Drug Class(es) Dates Sig (Normalized) Sig (Original) ProAir HFA (9 sources) beta2-Adrenergic Agonist Start: 10-23-2017 ProAir HFA 2 puff(s), Inhalation, Refill(s) 0, Shortness of breath or wheezing Start Date: 10/23/17 Status: Ordered allopurinol 100 mg oral tablet (9 sources) Xanthine Oxidase Inhibitor Start: 09-13-2013 take 1 tablet by mouth once daily allopurinol 100 mg Tab 100 mg = 1 tab(s), Oral, Daily, Refills(s) 0, Gout pain Start Date: 09/13/13 Status: Ordered ALPRAZolam 0.25 mg oral tablet (9 sources) Benzodiazepine Start: 07-10-2021 take 4 tablets by mouth three times daily alprazolam 0.25 mg Tab mg tab(s), Oral, TID, Refills(s) 0, Anxiety Start Date: 07/10/21 Status: Ordered amLODIPine 5 mg oral tablet (9 sources) Dihydropyridine Calcium Channel Leigh Start: 09-13-2013 take 1 tablet by mouth once daily Norvasc 5 mg Tab 5 mg = 1 tab(s), Oral, Daily, Refills(s) 0, High blood pressure Start Date: 09/13/13 Status: Ordered aspirin 81 mg delayed release oral tablet (9 sources) Platelet Aggregation Inhibitor, Nonsteroidal Anti-inflammatory Drug Start: 08-09-2021 take 1 tablet by mouth once daily aspirin 81 mg Oral EC Tab 81 mg = 1 tab(s), Oral, Daily, # 30 tab(s), Refills(s) 0, Pharmacy: [facility], 182, cm, 07/18/21 15:01:00 EST, Height/Length Dosing, 106, kg, 07/18/21 15:01:00 EST, Weight Dosing Start Date: 08/09/21 Status: Ordered Start: 08-09-2021 take 1 tablet by kiki th once daily aspirin 81 mg Oral EC Tab 81 mg = 1 tab(s), Oral, Daily, # 30 tab(s), Refills(s) 0, Pharmacy: [facility], 182, cm, 07/18/21 15:01:00 EST, Height/Length Dosing, 106, kg, 07/18/21 15:01:00 EST, Weight Dosing Start Date: 08/09/21 Status: Ordered atorvastatin 20 mg oral tablet (9 sources) HMG-CoA Reductase Inhibitor Start: 08-12-2021 End: 07-22-2024 take 1 tablet by mouth once daily Lipitor 20 mg Tab 20 mg = 1 tab(s), Oral, Daily, X 90 day(s), # 90 tab(s), Refills(s) 3, Pharmacy: [facility], 185, cm, 04/27/23 11:56:00 EDT, Height/Length Dosing, 106.4, kg, 04/27/23 11:56:00 EDT, Weight Dosing Start Date: 07/28/23 Stop Date: 07/22/24 Status: Ordered bifidobacterium infantis 4 mg oral capsule (9 sources) Start: 04-10-2020 take 1 capsule by mouth once daily Align 4 mg oral capsule 4 mg = 1 cap(s), Oral, Daily, Take after completing the Antibiotics course, # 28 cap(s), Refills(s) 0, Pharmacy: [facility], 185, cm, 04/10/20 9:42:00 EDT, Height/Length Measured, 107.9, kg, 04/10/20 9:42:00 EDT, Weight Measured Start Date: 04/10/20 Status: Ordered clopidogrel 75 mg oral tablet (4 sources) P2Y12 Platelet Inhibitor Start: 08-09-2021 take 1 tablet by mouth once daily in the morning clopidogrel 75 mg Tab 75 mg = 1 tab(s), Oral, Daily, Begin day after loading dose Take with aspirin Take am of cath, # 30 tab(s), Refills(s) 0, Pharmacy: [facility], 182, cm, 07/18/21 15:01:00 EST, Height/Length Dosing, 106, kg, 07/18/21 15:01:00 EST, Rikki... Start Date: 08/09/21 Status: Ordered fluticasone propionate 0.05 mg/actuat metered dose nasal spray (2 sources) Corticosteroid Start: 02-17-2019 fluticasone 0.05 mg/inh Nasal Willis Nasal, Daily, Refill(s) 0, Allergy symptoms Start Date: 02/17/19 Status: Ordered fluticasone 0.05 mg/inh Nasal Willis (7 sources) Start: 02-17-2019 fluticasone 0.05 mg/inh Nasal Willis Nasal, Daily, Refill(s) 0, Allergy symptoms Start Date: 02/17/19 Status: Ordered glimepiride 1 mg oral tablet (9 sources) Sulfonylurea Start: 07-10-2020 take 1 tablet by mouth once daily glimepiride 1 mg Tab mg tab(s), Oral, Daily, Refills(s) 0, Blood glucose Start Date: 07/10/20 Status: Ordered hydroCHLOROthiazide 25 mg oral tablet (9 sources) Thiazide Diuretic Start: 06-20-2012 take 25 mg by mouth once daily hydrochlorothiazide 25 mg, Oral, Daily, Refills(s) 0, High blood pressure Start Date: 06/20/12 Status: Ordered pantoprazole 40 mg delayed release oral tablet (3 sources) Proton Pump Inhibitor Start: 09-10-2022 End: 12-09-2022 take 1 tablet by mouth once daily Pantoprazole [address] Tab 40 mg = 1 tab(s), Oral, Daily, X 90 day(s), # 90 tab(s), Refills(s) 0, Pharmacy: [facility], 73, cm, 07/09/22 13:05:00 EDT, Height/Length Dosing, 107, kg, 07/09/22 13:05:00 EDT, Weight Dosing Start Date: 09/10/22 Stop Date: 12/09/22 Status: Ordered Start: 12-13-2021 End: 01-12-2022 take 1 tablet by mouth once daily Pantoprazole [address] Tab 40 mg = 1 tab(s), Oral, Daily, X 30 day(s), # 30 tab(s), Refills(s) 0, Pharmacy: [facility], 185, cm, 12/03/21 11:38:00 EDT, Height/Length Dosing, 108.5, kg, 12/03/21 11:38:00 EDT, Weight Dosing Start Date: 12/13/21 Stop Date: 01/12/22 Status: Ordered Vitamin D3 (9 sources) Start: 05-19-2019 Vitamin D3 500 International_Unit, Oral, Daily, Refills(s) 0, Prophylaxis Start Date: 05/19/19 Status: Ordered Completed/Discontinued Medications Medication Drug Class(es) Dates Sig (Normalized) Sig (Original) hyoscyamine sulfate 0.125 mg oral tablet (9 sources) Start: 04-24-2021 End: 06-23-2021 take 1 tablet under the tongue once daily as needed for muscle spasms Levsin 0.125 mg SL Tab 0.125 mg = 1 tab(s), SubLingual, Daily, PRN spasm, Take it after your first dose of the colonoscopy prep, # 30 tab(s), Refills(s) 1, Pharmacy: [facility], 185, cm, 04/24/21 14:36:00 EDT, Height/Length Dosing, 108.4, kg, 04/24/21 14:36:00 EDT, Weight Dosing Start Date: 04/24/21 Stop Date: 06/23/21 Status: Ordered potassium chloride 10 meq extended release oral capsule (9 sources) Start: 06-20-2012 take 1 capsule by mouth once daily potassium chloride 10 mEq Cap-ER 10 mEq = 1 cap(s), Oral, Daily, Refills(s) 0, Prophylaxis Start Date: 06/20/12 Status: Ordered Start: 06-20-[address] [facility] once daily potassium chloride 10 mEq Cap-ER 10 mEq = 1 cap(s), Oral, Daily, Refills(s) 0, Prophylaxis Start Date: 06/20/12 Status: Ordered Problems Active Problems Problem Classification Problem Date Documented Da te Episodic/Chronic Abdominal pain (9 sources) Epigastric pain 10-14-2020 Episodic Acute and chronic tonsillitis (9 sources) Tonsillitis 05-04-2019 Episodic Asthma (9 sources) Asthma 11-18-2013 Chronic Asthma (1 source) Asthma Onset: 8 Biliary tract disease (9 sources) Gallbladder calculus with acute cholecystitis and no obstruction 11-18-2013 Episodic Chronic obstructive pulmonary disease and bronchiectasis (9 sources) Bronchitis 05-04-2019 Episodic Diabetes mellitus without complication (1 source) Diabetes mellitus without complication Onset: 8 Esophageal disorders (9 sources) Gastroesophageal reflux disease 11-18-2013 Chronic Essential hypertension (18 sources) Hypertensive disorder 10-11-2013 Chronic Essential hypertension (1 source) Essential hypertension Onset: 8 Gastritis and duodenitis (10 sources) Chronic gastritis; Translations: [Unspecified chronic gastritis without bleeding] Onset: 2 08-11-2017 Chronic Gastritis and duodenitis (9 sources) Gastritis 09-10-2021 Episodic Genitourinary symptoms and ill-defined conditions (1 source) Microscopic hematuria; Translations: [Asymptomatic microscopic hematuria] Onset: 2 Episodic Gout and other crystal arthropathies (9 sources) Gout 11-18-2013 Chronic Nausea and vomiting (18 sources) Nausea and vomiting; Translations: [Vomiting] 07-10-2021 Episodic Other aftercare (1 source) Long-term current use of anticoagulant; 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] Onset: 2 Episodic Other and unspecified benign neoplasm (9 sources) Gastric polyp 08-11-2017 Episodic Other and unspecified benign neoplasm (9 sources) History of polyp of colon 09-10-2021 Episodic Other and unspecified benign neoplasm (11 sources) Polyp of colon; Translations: [Polyp of colon] Onset: 2 06-15-2019 Episodic Other connective tissue disease (9 sources) Rupture of tendon of biceps 11-18-2013 Episodic Other diseases of kidney and ureters (1 source) Acquired renal cyst without neoplastic change; Translations: [Cyst of kidney, acquired] Onset: 2 Episodic Other gastrointestinal disorders (9 sources) Mass of stomach 09-10-2021 Episodic Other gastrointestinal disorders (9 sources) Urgent desire for stool 04-24-2021 Episodic Other upper respiratory disease (9 sources) Seasonal allergy 10-11-2013 Chronic Other upper respiratory infections (9 sources) Pansinusitis 06-07-2015 Chronic Other upper respiratory infections (9 sources) Laryngitis 06-07-2015 Episodic Comment on above: CHRONIC Pancreatic disorders (not diabetes) (9 sources) Acute pancreatitis 05-04-2019 Episodic Pneumonia (except that caused by tuberculosis or sexually transmitted disease) (9 sources) Pneumonia 05-04-2019 Episodic Substance-related disorders (9 sources) Smoker 08-12-2021 Chronic Comment on above: Added secondary to d ocumentation in Social History. Unclassified (1 source) Disease of stomach and duodenum, unspecified / K31.9(ICD-10) Onset: 8 Unclassified (2 sources) Polyp of stomach and duodenum / K31.7(ICD-10) Onset: 8 Unclassified (1 source) Gastritis, unspecified, without bleeding / K29.70(ICD-10) Onset: 8 Unclassified (1 source) Unspecified osteoarthritis, unspecified site / M19.90(ICD-10) Onset: 8 Unclassified (1 source) Personal history of methicillin resis staph infection / Z86.14(ICD-10) Onset: 8 Unclassified (9 sources) Asymptomatic microscopic hematuria 10-29-2021 Unclassified (9 sources) Drug therapy finding 12-03-2021 Past or Other Problems Problem Classification Problem Date Documented Date Episodic/Chronic Other disorders of stomach and duodenum (1 source) Disease of stomach and duodenum, unspecified; Translations: [Disease of stomach and duodenum, unspecified] Onset: 11-20-2017 Episodic Unclassified (1 source) Exposure to 2019 novel coronavirus; Translations: [Contact with and (suspected) exposure to COVID19] Unclassified (9 sources) Methicillin resistant Staphylococcus aureus (organism) Onset: 09-11-2011 08-11-2017 Comment on above: 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 NO ACUTE CARDIOPULMONARY DISEASE.. CLINICAL INFORMATION: R05.2 subacute cough COMPARISON: SEPTEMBER 09, 2019 FINDINGS: Two views of the chest. Surgical clips right femoral head.. Cardiopericardial silhouette normal. Pulmonary vasculature normal. Calcified granuloma lateral right mid lung, unchanged otherwise clear. Ordering Provider: Kanu Abraham FINAL REPORT Dictated: 08/14/2023 10:34 am Prem Medniola MD Signed (Electronic Signature): 08/14/2023 10:34 am Signed by: Prem Mendiola MD Transcribed by: LEYDA Technologist: YAMINI Technical Comments Radiation Dose: Ka,r in mGy = na DAP = na Normal [facility] XR Spine Lumbosacral Minimum 4 Viewson 08-14-2023 XR Spine Lumbosacral Minimum 4 Views Exam Date/Time: 08/14/2023 10:29 EST Reason for Exam: M54.41 G89.29 choronic right sided low back pain with right sided sciatica Report IMPRESSION: Mild degenerative change lumbar spine. Degenerative change, lower thoracic spine. 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 Vertebral bodies are normal in height and alignment. Small anterior osteophytes L2-L5. Posterior osteophyte base of 3. Anterior flattening, articulating surface, T12 with posterior disc space narrowing T11-T12. No dislocation. No bone lesion. Ordering Provider: Kanu Abraham FINAL REPORT Dictated: 08/14/2023 12:34 pm Prem Mendiola MD Signed (Electronic Signature): 08/14/2023 12:34 pm Signed by: Prem Mendiola MD Transcribed by: LEYDA Technologist: YAMINI Technical Comments Radiation Dose: Ka,r in mGy = na DAP = na Normal [facility] Consent for Treatmenton 04-08 Consent for Treatment [id number]#[id number] D:127 Normal [facility] Heart and Vascular Office/Cl inic Noteon 04-27-2023 Heart and Vascular Office/Clinic Note History of Present Illness Mr. Humphrey is a very pleasant 67-year-old gentleman with a history of pancreatitis, diabetes, hypertension, lifelong non-smoker, nondrinker, pneumonia, rotator cuff repair, hypertension referred to our office for epigastric pain. Specifically the patient required an upper GI and a spasm evaluation of his lower esophageal sphincter but prior to that he was referred to cardiology for midepigastric pain to determine whether this is cardiac in nature. Patient states that after he eats on occasion he develops midepigastric pain followed by defecation, followed occasionally by nausea and vomiting. He denies any exertional chest pain and is quite active. He does have a small hiatal hernia, and had previous EGD showing bleeding polyp. He also has seasonal asthma and gets shortness of breath with environmental allergies but not when he exerts himself. In addition the patient has a positive family history of premature coronary disease in his brother who suddenly in his sleep, and his father had a myocardial infarction. Mother had no cardiac ailments (08/09/2021 12:10 EST Echo Transthoracic Complete) SUMMARY/CONCLUSION: 1 Mild global LV dysfunction with an ejection fraction around 45-50%. 2. Stage I diastolic dysfunction. 3. Trivial tricuspid regurgitation with normal RVSP of 21 mm Hg. 4. Minimally dilated ascending aorta of 3.4 cm. 5. In comparison to echocardiogram dated 08/06/2010, LV function has been mildly reduced to 45-50%. (08/09/2021 14:13 EST NM Myocardial Spect Rest/Stress 1 Day) IMPRESSION: 1. Abnormal, adequate treadmill/MPI. Patient appears to develop mid-anterior hypoperfusion at peak exercise. The patient had frequent premature ventricular contractions prior to and after his stress test, however, they resolved during his exercise. 2. Baseline hypertension with appropriate blood pressure response to exercise. 3. Diminished LV function with an LVEF of 49%. 4. No anginal symptoms noted. 5. Below average exercise capacity for age. 6. The patient tolerated the procedure well. No complications. [2] Patient of an elective cardiac catheterization on 08/12/2021 with the following results: CONCLUSIONS: 1. Minimal nonobstructive coronary disease of the left circumflex, otherwise normal left anterior descending, ramus intermedius and right coronary artery. 2. Normal left ventricular size and function with normal left ventricular end-diastolic pressure. 3. Normal complications. [3] Given the above findings he then underwent GI evaluation with EGD which demonstrated multiple antral nodules and gastritis. He is now here in follow-up. Patient currently on PPI therapy. He has discontinued his Plavix, but continues baby aspirin and is tolerating this without any difficulty whatsoever. He is also discontinued his ibuprofen and this is markedly improved his GI condition. Patient recently underwent vein laser ablation surgery, and his right leg has markedly improved with his edema. He denies any chest pain, angina, shortness of breath or dyspnea on exertion. He is compliant with his medications. In our office today his blood pressure is 120/70 and pulse is 49 and regular. Physical exam demonstrates clear lungs bilaterally, regular rate and rhythm, normal S1/S2, no S3 or S4, no murmurs detected. Patient does have some mild midepigastric tenderness with palpation. No rebound tenderness.. Lipids dated 07/19/2021 show an HDL of 40 and LDL of 172. Repeat lipids are pending. EKG dated 07/18/2021 shows normal sinus rhythm at a rate of 86 bpm, normal axis, normal intervals, mild intraventricular conduction delay. No previous myocardial infarction. Patient requested repeat EKG which was completed on 04/27/2023 which showed normal sinus rhythm with rare PVCs, no previous myocardial infarction noted. Review of Systems Constitutional: no fever, no chills, no weakness, no fatigue Respiratory: no shortness of breath, no cough, no orthopnea, no wheezing Cardiovascular: no chest pain, no palpitations, no edema Neuro: no dizziness no light headed no syncope Additional ROS info: Except as noted in the above Review of Systems and in the History of Present Illness all other systems have been reviewed and are negative or noncontributory. Physical Exam General: alert, no acute distress Neck: Supple, noJVD nocarotid bruit Cardiovascular: regular rate and rhythm, no murmur normal peripheral perfusion Respiratory: Lungs CTA, respirations non labored Extremities: no edema Neurological: oriented x 4, LOC appropriate for age, sensation equal & normal bilaterally, speech normal Skin: Warm, dry, intact- no rash or concerning lesions Assessment/Plan 1. Hyperlipidemia: His LDL and HDL cholesterol are fairly well controlled. Continue Lipitor. 2. Hypertension: His blood pressure and heart rate are well controlled. Continue antihypertensive medications including hydrochlorothiazide and amlodipine. 3. Return to office with Dr. Guy in 6 manuel (more content not included)... [facility] Comment on above: Result Comment: Elec tronically Signed By: MALENA ELLISON, Bhupinder Lopez.br\Date and Time Signed: 04/27/23 12:08 EDT Physician Orderon 04-27-2023 Physician Order [id number]#1.00 CD:127 [facility] Reminderson 04-02-2023 Reminders - From: Kavya Nieto To: [facility] - Clinical; Sent: 09/12/2022 13:37:33 EST Show up: 02/10/2023 14:37:00 EDT Subject: 6 month f/u Due Date/Time: 03/12/2023 14:37:00 EDT Reminder/Recall 6 month f/u w/ Dr. Guy march 2023 From: Mandeep Diana ([facility] - Clinical) To: [facility] - Clinical; Sent: 04/02/2023 11:34:41 EDT Show up: 04/02/2023 11:34:00 EDT Subject: RE: 6 month f/u Scheduled 04/27 [facility] Coding Summary.on 09-22-2022 Coding Summary. CD:[id number] Gh0 bWw+PGhlYWQ+SE5NQAJaZ81 kvGKiyI5OI6zLAX7JKVMXKU GEWG7VFW3lzZX4FAbfR2Kso iAv UvxsjSVtBE91VXh8NJZ1nVd nYRopmE1vrZXnA0l0JpChEP 36lE28JLbgSNSdLeU2PoKdc jsgbWFy G8blXnAcdOCvIge+PHRhYmx lIHdpZHRoPScxMDAlJyBzdH dvAW7hMs9fNBEdBXNsaXaak HNlOiBj i0usSCTeUQatLU5tyDbkC9C byIZ9IWAtb4h8Fh04uJQ+PH BaMEF9aHbnGDgyu013ZlGrd 8otUBL2 gMYcRIpxUHL1Z65hk5O5FCK tXZCnJFF6uCB5tO9tjBywoa guU4SjrKXfDxW0ZKG8oZUbj C4nxDpa skwfmH9fOwl+K47KIH9AOMW TCX5YNkw8X1OcNkluxUF+PC 49CWQjGP88iIQciVTcy5ind Ri6VqFq PWYpEJN0kZdhPNozu5VkCOS iH05lcXKsc6G7HYYuxCnrjR OiPqDpbXU6iT3yWLvfiwjiy 2hvdzsn Ullbh3cgtj20tA51P92gALz bXHBwUYV1EBLdFFIebBshjv 4omC9lNy2+ZTwkf5bkh9uad El1SgCi LOVlvgMmmBoeONQ2l2CfDl6 6D4CprUsgr4FzIwr8ld36mA Hgr8T3yIZ2RRxsNBXpbK6cW WxlZnQ6 FFZtTzNwvI58ySUqBUnhVj6 ooGkeyAdhSB2aRBWyfrfrHH LqrO4bZWAahOIecUguPO9gH TBpbjtm c881VsYlDIU3RCXexZVtE7H wnH0hVrObMTFhUFLgF7HtaB UrVJusK734QCyxLgV9GCJid jFoD9Bm AYFxfPepFvC6j8G7Hm1Nb6W osxhpIRH1QSbiRWMtNdE5Vp HrFyI0P9BiDyk3EYOxoItpP E5uC8Lj OYCixtitgpeznAY5ZVNkHCX yyN91uEQbXLiuWx5qf5Z2f9 83JIMfDUVccM74Pm2mpUghY TBwdCBU rZ2qwwyhb9dedczwImYaNVZ cIJk9XXc9FQBvtZlwXbKoPL X7FdJ0GGD4sQJezT7blHsgg bezpM5p Oyc+T17ypL3cFBY3GMA7jcd cZIHolcZvBW69SJ86J6GeRk wvdGFibGU+PGRpdiBzdHlsZ K8eVgMx o4myn5ZcSAfeW4WpDJWvDWv hLcb6LJNuVLZ0bYB7rI1rAM GvNMqei5U2eMC7S6NzwwFci e6ji3ng XJEvQIrsL86gaAWtx2Z8RQC uvWL7ENKunQfzOsVzyE09Au c+DLJusBwud6DvMwhnm3prj 1waySp8 CiHyBQQvhaYfcNqvCFS6t9W mDn75U47gVFanWWAqICVuRH TzIAYdaQsprl6jiX4gGq6+P GNvbCB3 cUV5fI7lCNZnAyE2VKplJ21 2CvFskTCfWcqtz3nng0rgcL p8NlUsRLMlseFzzWawTMA6r 4BaJe92 Y88sXDmqCDMoMYLpVHRlHKU llDgwwl7ucF6fNh1+PC9jb2 koqm83gD95cNT+OMDoING5o WxlPSdw TORvmJ3eJHhfMlD3UTAtYwD ynP11rQEqMVuiCr8lbLmiwA pyUI8uOCHxmpfuk892IoMoy 2xkIDEw bJHyRYokHPM0X09dj2Q0GVL xCKQsCRM0fVF0wH1lmImdez ogbGVmdDsgdmVydGljYWwtY SfgU915 IHRvcDsnPlBhdGllbnQgTmF fLJw7F9HnPzq0XUJjzLshDW 4nvYNdSWhqKl1lnExyqJioW I2fCGBb apxxc727WhYly7doYYXhvRT yMQslRQS2W67fq8N5GKIdIK IqNGJ0bVP4hA5kaAnzypktl GVmdDsg hyHbxXwpGUzrDUarY735KUN ctFyyXyEtpbUlTBBbpBL0DX 29AL69kTYgt3W0aDS4B5CuD GRpbmct rvjjkAG4SXRvXDEnhJ60Px7 yzOmpMo0dNJJrZBF3DTAxaR EwA5OpwT6eNlGaIUVeWXSiL 3RleHQt XGnqY374ENeqJnT1RXCydqF xQ8XpGUHnkRwaUkS8b5Q7Iw 4FP3Z1CN29UX88mGKqs0N0k HF1C1Dl EXYpbqdhhdzuxSU5VSLuZUN ujM13Ku8rsPtrJg6cAOSqLA Q6OGGelJMfI7YmpB3kHlVaY DAwMDAw N4HmrBXzRCleZ133BAbdTxF 2YACuzeFaG6RaOOQrbCwtUr U5j8R8Lt7GQKq1RH52DX08u BVqo3Y2 vNT6M7CtKAIdtbcjpfdxqRT 3IXDrQLMvyI42Xb8nsHsgWx 8cOSZaGRE5IUIlbAYrJ5Ggv E4bSqQk XQMiFCDtX1TuhMCiQHtzG41 1DIhrDpS2QAHkkgYoB1EePQ XtrMeeVkB0d1N3Pd6IFSLnI T02EMI8 wTJ4HD52WU97S9AnRounaQW ibGU+PHRhYmxlIHdpZHRoPS jlUBUoLxYirKuaKX7rPk7rZ GVyLWNv uGhzmIMqHiQxr4ypIXZmNXp dKI4yxUviD3FfvUM4LKJrd5 b5Ja63O01rC2PpnNW+PGNvb IO7qGM3 tP1eHtPcGbG9BGadI599PiA fmWMhMgkhr6uyb5iatNh3Wb U8SLGvubPymCxaVHZ0i7XgH y04J52r IHdpZHRoPSIxNSUiIHZhbGl gdz2lqW7uAd8+YMXiiOT9sE F8yU5kBiSiJdL4TYkcD511M nRvcCIv Uuzog0eyn9hpxHy9UmPvXZR faaHzjVjoOUX6j2VcIc81M8 OrxXnsm8TiYeg1wn42dYXiy 1Z1jYC9 N4QiIXCclabbrWIquCpiBI6 sSNKplwzdPKBahE7tRQKfJ1 a0BqAuMoD8XFvlE0LaqyW0C DEwcHQg HOwzLHB5T29ee1E7EMRaLGA qPJO9sDB1iU2fhHrohequyE VmdDsgdmVydGljYWwtYWxpZ 246IHRv mHqpGEEznN6iOTCzyVYfxLh eLY9jIPFdxazpZaYIQQNPRZ QPMYMLUGUZRAE2L8NxOsd6L CBzdHls CH9etJOxQKltPr0feNhobKj tAX1uTDOiwjsnXAZtwE2iBX ZraGHgmUsuJI6nVAYmpilhb 250OiAx RBI6WQQqnSKpB6VaoU6yTrQ nEVXgYGFpK1MezMIaVPlzP0 12RRajBbL0BKDpktFaM9OaB WFsaWdu FkN6m1M7Pk3vNP6mEm1qSHO 8ZL19LZ42sTItk4S5aWU8A1 QlBJWxydymsyqaoBX1TYFrW DUwaW47 bMBsTKhoEe8jg9I9u788HVV kITGheU93Pe9rdOnfMVExzJ TCvQ5qugbre3gxokipYzQmI DAwMDt0 EYj9JINkzPkbLhAdRUX2WaD 4GSV7eSXblS9nzTskdhuypL 9wOyc+NxidWSPeudV5Q8WyW lx4VBIx qYvuIG5kxSLxJDpkBs6dpWp beRmbIX9pDDObhyalGQErxV 1vFOZesJJwkJshID3sQIJfv unwa143 TqDbRLA8TSAhbZAdE1RvaC3 eRyMcPDRjWAQmZ6CmqUStAV rsB056VYcuJxB3IMJucdRmK 2FsLWFs uMlfQuR1n3D1Pt4XRUhoYS0 6PT77gATls8F2sFC1J1JrWX EzdqufugjloHL1FLEcBPIgr E54kJGm NGxvWg5kv2C3w804NOOlYWS erJ56Ln5qrIwxFMCrzNYCvV 6pkjpnx6erlsqnNsRpTPFlL Kb3NDu2 WDNbvBsiFsQcCAA5TfX6GCT 2qPUuaU6kxZsmsqnhoS0eBo c+W1N9uSF0lCFruXaifHP+P Y26os60 C0SaMljmMrs1DYGwVAA9gBZ 2aR3pCSRlQVtyi3K0kZJ7S2 VcgzJnpc2yi5naCEIwEJdiA 29sbGFw e2L3YRXgvOE9ELQkjDqkAoO mmY54Eqy+UQQuiDyyh6JxMc lvg3coc5hpbBx6CdWdFYBgt mFsaWdu XVB2f3GaXi52J91bFWnpDYV tHMOySYYwLAYumMoicr3kbI 9wIi8+DLJzbRW6mRF4kW7hV jAlIiB2 DGkuN009KrOmlXCuQalbd6m zw5imkSh8BrSpAMAdhsSavT vwWVO2p5KvNc23V6GbmNauo 0JjTeo8 lr66oIUef9R5sSH9M7IcXYH sifnlsDChcZicPC5tHXSmmi niPZPyaX8qLPWhW0s9RjUzR bF2JTfs O5DjmfG4LAWttBUtXOAgvWZ HkA6qkmtbg1tfmmppTvGyLN MfJVt1VJu8UNBhfLvdSrAjC UT3HnE8 ZVL2rMLewL3rjTavmiukrA6 wOyc+FGs4w9qumXBgJQ2ltP F9WM00AH85hYGgx2A4kDS4Q 3BhZGRp jxvrrcijgDM5LSBgHAFyaD2 9Dt4iwQezPf6qVOZtGNV7ZJ TsaVErG4EmoD1aTmRiPCPvS MZfW4Ug aDQpYQplR835DXukBpY4JIE ijbVeY3YyMAXnzSvnGoN5a8 A5Mb1JQY73KD96CO61tLSco 7U4aCH9 E7OuYNYyekzbzcsbnQT9KVA yKKXzuT30Mj3fnMzeFf2kIN RnZYG6HVYtfSTcT8HwkI2jY iAjMDAw DMGxF9FghCYrOEbtL217GKw uTpQ4WZLmneXmI4DtTXPqbR snTmY1s1P7Ul6YXb20WN05M G91zCFm d3P3lCE7G7VxCUEdjewefag bkTI8HKAdUUYzwF53Db3yoO seKb3nJXSjJVP3NTBqhRYwI 3PwmJ6q AyChSHZpYXUyM1NklQJqLRz xR222JKrlNzF3QKHqcxHaV3 LbDTDpuKdhUpN2v5I4Jp5AQ Xllcjo8 O3XvGzdbdWQ+PU72SAFkIO2 1hUPhqCKyg6szlFt1IzAkUU ZnCTX2tIsuSOrrs4PyUMHkT 29sbGFw c2U6 (more content not included)... [facility] Coding Summary.on 09-16-2022 Coding Summary. [id number] Gh0 bWw+PGhlYWQ+EG9NTWGoG15 ebSBmhO2LE2tCZS9JINQWCZ KYFG3OOF5ecRE9UVvjS0Oxo iAv FzhytELcQJ22AJn3LXW6aGg iPQlbxP0igLClB1f9NiAvGX 03mT42GIxoPVHqWfW0HuXcg jsgbWFy B5yvLgWgcMXtIof+PHRhYmx lIHdpZHRoPScxMDAlJyBzdH czNY7bOb7sLEVoADHapYmfp HNlOiBj x3upXWGcXEeoKF7niLxuV2Z pfSO6RGHap0z4Tv44dKG+PH ScRGU7bPitDMiow324DlFfa 9qhVSV3 wFZtUMhrSON4Y44fc7J7QUX aXTDwBKK2mIX5gA2vuZthdn moO0ElcILkCbU6XXO0rEXdf Y6loZah acekkE3hGrc+X80EQE2WBHB ULW8HTcv3P7DrQjdsuJU+PC 04XWUhYH79qCTfgAPsr1kil Jn4OpKa DQNsNVL7kFrcHTivs9MiPKF lY32dzISwk6C8RNMguBsrtI BoPuVsjYS0vN1tYBeqqwsna 2hvdzsn Scymv9gdhs96oO17V29cBVq bZSYmRKX5ALVrHWYfpEisqw 4iwR4eKg7+AOunf5pmr7ash Je9NnOw UXAfrhUdaAvdLDC5h4IgOy4 7Q9YznOcnl9PpRad7un28zK Vzr1Z6vBL5TMmjALOrwQ0bK WxlZnQ6 VCMvWdIltD13gTOwWUehPz6 tqCgibDzlGN4yJSSlxuuoBE PrvJ4uUAJkjRXamGigND0jR TBpbjtm n714DhKrMGQ7KEFmnORhO4M jtJ6bKuXaWLOrBJScS0QuaZ BkPSzxI520IIqvYoE7ASJoq gSmJ2La QHCunCwcKcH2r1H1Eb8Hs9Y axbeuWLG5BJsrTMMuYiFlBp VcVpY5H2McZcu4YFXyrNteU L7iW6Ys QBEkjzlskhcfnXA5EMAfDQC yqT50fRVgLIgfPo8wc4B8e6 46DUZyGUAatL10Wx5iwRwfD TBwdCBU pW0meqexj1ytycgnZfNnFZN tPZj5AVm9XFVvdMsgQpAlUQ Z1FtO5NXT1dWIfcE8vqJecw cimbU1r Oyc+T96grO3kZLM0TLG5rwp iKRRuzlDbML23UJ43Q9HgOh wvdGFibGU+PGRpdiBzdHlsZ Z7nYrMc y0kvl3ObDJxnJ4DoLAZuKGs vAfz7BGDpWAO2sHV8sW9iOI UuAVrdw6U0oIZ3H2UqohKho k6nk8og CJBeQNzxO06cgGZku6C7WOG jjPV1SZMcwBseLuWakC89Bd c+NEIlkIxwd7ZnGcyku0fab 3zqdMk7 TjEpRHRvswBewKbvMTW6t3X eLo60C23uJDiwAIQkPSFvHO OvUDGrbKlkgm0lnU7gMh1+P GNvbCB3 mXM2xP8zRJYzVgW9GLxqX38 0UuHjtKMzRjcuf6ixj9lbnO u0AaDmLDOulcIzmSmzRRH4v 1IvOl54 K03oPCwrLBFuPPUmDYZnPVK ulXwwpj8loE5oWt0+PC9jb2 dxis94bQ42lEA+OSVnPYJ0p WxlPSdw OCWnzA9bSBaaCvB7VPXyUwX lvE23zUNySWvvHx3lxLrgsZ kdIH5uEFFkovysw273RxBes 2xkIDEw pRUdYTmwKSH5L86vr9M0ICI uRPGaPZC3yTX0jB8cqLqyqy ogbGVmdDsgdmVydGljYWwtY FbhO094 IHRvcDsnPlBhdGllbnQgTmF fOLm4J7RfRdt3ARHcyQkzKB 9tfJGtALqsYp9quQkcnAzmE W5pLOEl qswlp247DjHhy2xsCUOinKS fTVxiKQE3B12uj6F3DUWwTZ HxDLM0sQC2jV8xiGahyblfe GVmdDsg jxBroZoaYKwgYFozV318MRD jhMxgSkIwbwIwQYMxmLE9VF 21OL62sYHfl5R6xOO3A4RtQ GRpbmct ahxknAY1UQSnVNMdrE38Lt3 taDphCa4zCCRxRQC5GZXjmQ OqK3IrjI3hEzNyHXGzVQAdC 3RleHQt XUbyG057XMzyPqY1JNMumrD hX8KpLFCwfOhaYnN8k6G5Zc 0VN9K7TS07LG06eMWgl3U0h ZJ9C9Jd TCWimbupspqkoDH4LUSpYVK udJ09Xb0hnDioTl7oHQUdOZ U1OTOqwYRpO5HrdN1hZiGxQ DAwMDAw Y5NzyTDtTSslU639OZzxKfT 5PINnvcIgV7IoSXFtnNcyGo R1b8B4Ev3GWNi2XW95QA42b GUmi0K2 sWU7N6BcDJMgzgdighlbwXL 0CDWsAJJvwA10Rn0tgSahFl 4bWVElPEY9BQYooGSpD9Tvh P2uHeVu ZVLgEXGtN2UflEQeFFgvE78 0ZNqsHxJ1PQPnvvImO8NvAU OvlJjcRlZ1h4L5Tm6DBTLeO J93PTN2 aWP1VK05IH82M9IsPkhnmLB ibGU+PHRhYmxlIHdpZHRoPS ufEISyZnBcjGjkUL9nBt5eE GVyLWNv uIkyeCPwOsVca3dxVZHfXOq hLC4niLcfO2WazUU8CBYts5 b4Rv47V94dZ8NmhCJ+PGNvb KW4wSY0 bX7zIlGyIaE1QQljY965OmS ueFZoSeosf8ugo2uvoFc4Ve X1DCJadqBagWnxFJX2s2GbC a29H54s IHdpZHRoPSIxNSUiIHZhbGl aux9rbH2dLg3+DLKlyTI8jH V9uT1dSbLqEaC5ZMlcJ117Y nRvcCIv Zuxvc9sxc6rkgEa1OrVlODA lbdHoaYfsIYD3f1YkEt78A5 WccGvbr4IrRaw0pn89mWNai 9M8uJN9 Q0MqFIKixpuhtJNzlEkhLY2 mSUVyrygoQGQshZ7yJASkA1 i6LoLzVnV3WFoxE4PluvI2F DEwcHQg FAcrXZB6C15qq8K6EIHcSEP zVQH8zSW2mL6kmUtujrlsmG VmdDsgdmVydGljYWwtYWxpZ 246IHRv jGxfACPlnR3gZQHkbAZblAn cAC5cBAJmggpaDqPICSONSB QZWMVGAIFBSWX3L9XlVgq9B CBzdHls XY2anGOwHWikEb4igNtjdAv mDE9rAIZvmelpKUGjuQ5iNW LxpUNqoDhcKQ2wIPKlrmhay 250OiAx DYD3LIAfeGSxS5TvyS3fZuM yNEThNPJhG8LfwPGoSCofK2 95OFvyAlP3YLEiejJvC3ZsU WFsaWdu FjK6o5I4Kp5rRI4gXx1aPYE 4AE38UY04eUZci6I2nVS6A1 IrJRJapsjdsosgzMX1MWDzH DUwaW47 cXEtZLffXc2qg0V3i824ZFB jBVSqaZ16Ot5xrIoqPIIxzG VDyK5yrudgs2vecvvqGoSlX DAwMDt0 GGc1JZQoyZvcVkWjUNG7SbM 6KXN6nBIzaB1trVtuvcratL 9wOyc+WlkrQQWiywV3Q3HgP jq3GQLj sLyqMO5qpFNeROwqIr7mlJg dvYjzQQ9jWESvilibDOHohD 9sYUYytEKqrHyqTQ1nVTDrz qlly745 CxYdXTZ0FAOfvXEdZ7JqoQ9 jSwCnQASzSPTmB3ZmlOBgPU ngU880SQcxSiT1HDEhsyYdJ 2FsLWFs iXgxApB2h5F6Zo1OFLrnJP7 8XQ10vEBtj3Y0fQF1J0IzFX BuljzhxpeltJT2RCQuYKOkg D43gYVs AGyvLj3hl4Y6a104SUIxFXW agM96Wb3hlOrmRUVwhPLZvE 3yriawh8axmimlRfCgDRGgI Ak7AOk7 GRJbbTseXaUeYAF1YaJ8BDG 3jEDxvC3vxXzkrpzyiJ8wRw c+O2P4gKJ7fXNdhLyiqRE+P Y25am15 X5LiVtsvKzx9HPKzDMF4zKO 3xR5mPSUuPRaah8Q6tEG7B3 BkvfYseb9nk9ldFDOoNTmwX 29sbGFw r9X6TVFhvSZ4YMTysNyxIgR btO54Qhg+MJZakBqrd4HqJh isb1vcx7pucXq2JrFsIGGmx mFsaWdu UED2g5VwYp81J27nZAngUEL iYUByNFDdZEZsiRhezg7hvG 9wIi8+LPHpnID4qTA7iL0yA jAlIiB2 JNfnG604WhJbdCCsPzdlw3h gp3txwAs8BlDbPMOyncUxzF uoRBJ0b7BxYj74S1MurAdfb 7GhFfb4 vr27iYPas7B4nDB8R6FxYYF zhxehyMUozNwiID8fZDOcui xeYWFwtX1yLYVaZ2z0KzWdK nJ1HNva U4UrbrX7WGOdbRSgIVPcwIJ AmW6yfgtyn4fzxxeeBmXvPF EuTJm5RUo2WEDfpThlQoDmD FX1UdI5 XOL5oIXxrR3xtMhckodnlN1 wOyc+OHk9y6sygPSgZA6tfL F5OM35GH14xTCul0W7rUS8D 3BhZGRp bfhusxlvqHB4DDGfYZWvgP3 4Jd9usPhpTr7xEBEzNXR4ER LzkDAeM7FumE8sXqBdLTEiE IMgT3Op sQNfMNkrZ747JSvpHaQ3MZI zwjVoS4IhEIDioFrvOwN3c3 W1Wa7DFM82RY62AR36lXDzg 2I7sFX6 L5EqFKImgbeaoguxbNZ0DPF pJVKkbE07It2bxLviCm7aDC KhAQP8QUBnzJGtO9PkzN4jT iAjMDAw UZIsG6EcdUInUNeaB963ITd aMvR3XTNhdlDxZ8DeDUSotV cpNlC8d1I2Xl8FOo84DM30O E85kGQi l0U7dFC9I4PqARVfnhkwyrt qbUY0ZAPoNBFhlV92Lm0cpF zgKp7bHKKcPDE3PCDneMPbT 4TptD8d KlRsPIVtWSVtE2AotORaBVp oJ301LWawNxO2UZZdhtBrI4 YfEUIbtZjpHdC1i3R2Jq9KT Xllcjo8 A1QcAuvzqRI+KJ41BQDrNG7 9cULzbTKco3mueLa7IkBbZT CiSNP7mMxdAPjpm0ChKYPgA 29sbGFw c2U6 (more content not included)... [facility] CHEMISTRYOrdered By: SYSTEM SYSTEM on 09-12-2022 Cholesterol [Mass/Vol] 144 mg/dL Normal 120 - 200 mg/dL [facility] Cholesterol in HDL [Mass/Vol] 40 mg/dL Invalid Interpretation Code [facility] Cholesterol in LDL [Mass/Vol] 85 mg/dL Normal <=129mg/dL [facility] Cholesterol in VLDL [Mass/Vol] 22 mg/dL Normal 7 - 40 mg/dL [facility] Triglyceride [Mass/Vol] 109 mg/dL Normal <=149mg/dL [facility] Consent for Treatmenton Consent for Treatment [id number]#1.00C D:127 [facility] Consent for Treatment [id number]#1.00C D:127 [facility] Heart and Vascular Office/Cl inic Noteon 09-12-2022 Heart and Vascular Office/Clinic Note History of Present Illness Mr. Humphrey is a very pleasant 67-year-old gentleman with a history of pancreatitis, diabetes, hypertension, lifelong non-smoker, nondrinker, pneumonia, rotator cuff repair, hypertension referred to our office for epigastric pain. Specifically the patient required an upper GI and a spasm evaluation of his lower esophageal sphincter but prior to that he was referred to cardiology for midepigastric pain to determine whether this is cardiac in nature. Patient states that after he eats on occasion he develops midepigastric pain followed by defecation, followed occasionally by nausea and vomiting. He denies any exertional chest pain and is quite active. He does have a small hiatal hernia, and had previous EGD showing bleeding polyp. He also has seasonal asthma and gets shortness of breath with environmental allergies but not when he exerts himself. In addition the patient has a positive family history of premature coronary disease in his brother who suddenly in his sleep, and his father had a myocardial infarction. Mother had no cardiac ailments (08/09/2021 12:10 EST Echo Transthoracic Complete) SUMMARY/CONCLUSION: 1 Mild global LV dysfunction with an ejection fraction around 45-50%. 2. Stage I diastolic dysfunction. 3. Trivial tricuspid regurgitation with normal RVSP of 21 mm Hg. 4. Minimally dilated ascending aorta of 3.4 cm. 5. In comparison to echocardiogram dated 08/06/2010, LV function has been mildly reduced to 45-50%. (08/09/2021 14:13 EST NM Myocardial Spect Rest/Stress 1 Day) IMPRESSION: 1. Abnormal, adequate treadmill/MPI. Patient appears to develop mid-anterior hypoperfusion at peak exercise. The patient had frequent premature ventricular contractions prior to and after his stress test, however, they resolved during his exercise. 2. Baseline hypertension with appropriate blood pressure response to exercise. 3. Diminished LV function with an LVEF of 49%. 4. No anginal symptoms noted. 5. Below average exercise capacity for age. 6. The patient tolerated the procedure well. No complications. [2] Patient of an elective cardiac catheterization on 08/12/2021 with the following results: CONCLUSIONS: 1. Minimal nonobstructive coronary disease of the left circumflex, otherwise normal left anterior descending, ramus intermedius and right coronary artery. 2. Normal left ventricular size and function with normal left ventricular end-diastolic pressure. 3. Normal complications. [3] Given the above findings he then underwent GI evaluation with EGD which demonstrated multiple antral nodules and gastritis. He is now here in follow-up. Patient currently on PPI therapy. He has discontinued his Plavix, but continues baby aspirin and is tolerating this without any difficulty whatsoever. He is also discontinued his ibuprofen and this is markedly improved his GI condition. In our office today his blood pressure is 122/76 and pulse is 80 and regular. Physical exam demonstrates clear lungs bilaterally, regular rate and rhythm, normal S1/S2, no S3 or S4, no murmurs detected. Patient does have some mild midepigastric tenderness with palpation. No rebound tenderness.. Lipids dated 07/19/2021 show an HDL of 40 and LDL of 172. Repeat lipids are pending. EKG dated 07/18/2021 shows normal sinus rhythm at a rate of 86 bpm, normal axis, normal intervals, mild intraventricular conduction delay. No previous myocardial infarction. [1] Review of Systems Constitutional: no fever, no chills, no weakness, no fatigue Respiratory: no shortness of breath, no cough, no orthopnea, no wheezing Cardiovascular: no chest pain, no palpitations, no edema Neuro: no dizziness no light headed no syncope Additional ROS info: Except as noted in the above Review of Systems and in the History of Present Illness all other systems have been reviewed and are negative or noncontributory. Physical Exam General: alert, no acute distress Neck: Supple, noJVD nocarotid bruit Cardiovascular: regular rate and rhythm, no murmur normal peripheral perfusion Respiratory: Lungs CTA, respirations non labored Extremities: no edema Neurological: oriented x 4, LOC appropriate for age, sensation equal & normal bilaterally, speech normal Skin: Warm, dry, intact- no rash or concerning lesions Assessment/Plan 1. Coronary artery disease: The patient's most recent catheterization in August 2021 showed minimal nonobstructive coronary disease and the patient is asymptomatic. His blood pressure and heart rate are well controlled. Recommend he continue his baby aspirin, hydrochlorothiazide, Norvasc. 2. Hyperlipidemia: We are awaiting a repeat lipid profile which will take place today. His LDL should be less than 100 preferably less than 70. Continue Lipitor. 3. Return to office Dr. Guy in 6 months time. Follow-up No qualifying data available Problem List/Past Medical History Ongoing Acid reflux Anticoagulated Asthma Asymptomatic microscopic hematuria C (more content not included)... [facility] Comment on above: Result Comment: Elec tronically Signed By: Malena ELLISON, Bhupinder Ac\.br\Date and Time Signed: 09/12/22 11:46 EST Lipid Panelon 09-12-2022 Cholesterol [Mass/Vol] 144 mg/dL Normal 120-200 [facility] Comment on above: Performed By: #### 2 [id number] ####[facility] [address] [place] [address] Cholesterol in HDL [Mass/Vol] 40 mg/dL Invalid Interpretation Code [facility] Comment on above: Result Comment: HDL > or equal to 60 mg/dL: Low cardiovascular risk HDL < 40 mg/dL : High cardiovascular risk Performed By: #### 2 [id number] ####[facility] [address] [place] [address] Cholesterol in LDL [Mass/Vol] 85 mg/dL Normal <=129 [facility] Comment on above: Performed By: #### 2 [id number] ####[facility] [address] [place] [address] Cholesterol in VLDL [Mass/Vol] 22 mg/dL Normal 7-40 [facility] Comment on above: Performed By: #### 2 [id number] ####[facility] [address] [place] [address] Triglyceride [Mass/Vol] 109 mg/dL Normal <=149 [facility] Comment on above: Performed By: #### 2 [id number] ####[facility] [address] [place] [address] Physician Orderon 09-12-2022 Physician Order [id number]#1.00C D:127 Normal [facility] Complete Blood Count with Au to Diffon 02-05-2022 Basophils (Bld) [#/Vol] 0.08 10*3/uL Normal 0.00-0.20 [facility] Comment on above: Performed By: #### C BCAD, CMP, VITD, LIPD #### [facility] [address] [place], [place] [id number] Basophils/100 WBC (Bld) 1.0 % Normal [facility] Comment on above: Performed By: #### C BCAD, CMP, VITD, LIPD #### [facility] [address] [place], [place] [id number] Eosinophils (Bld) [#/Vol] 0.31 10*3/uL Normal 0.02-0.50 [facility] Comment on above: Performed By: #### C BCAD, CMP, VITD, LIPD #### [facility] [address] [place], [place] [id number] Eosinophils/100 WBC (Bld) 3.8 % Normal [facility] Comment on above: Performed By: #### C BCAD, CMP, VITD, LIPD #### [facility] [address] [place], [place] [id number] Erythrocyte distribution width (RBC) [Ratio] 13.0 % Normal 11.0-15.0 [facility] Comment on above: Performed By: #### C BCAD, CMP, VITD, LIPD #### [facility] [address] [place], [place] [id number] Hematocrit (Bld) [Volume fraction] 45.5 % Normal 38.5-50.0 [facility] Comment on above: Performed By: #### C BCAD, CMP, VITD, LIPD #### [facility] [address] [place], [place] [id number] Hemoglobin (Bld) [Mass/Vol] 14.9 g/dL Normal 13.0-17.1 [facility] Comment on above: Performed By: #### C BCAD, CMP, VITD, LIPD #### [facility] [address] [place], [place] [id number] Lymphocytes (Bld) [#/Vol] 2.4 10*3/uL Normal 0.9-3.9 [facility] Comment on above: Performed By: #### C BCAD, CMP, VITD, LIPD #### [facility] [address] [place], [place] [id number] Lymphocytes/100 WBC (Bld) 28.6 % Normal [facility] Comment on above: Performed By: #### C BCAD, CMP, VITD, LIPD #### [facility] [address] [place], [place] [id number] MCH (RBC) [Entitic mass] 29.4 pg Normal 27.0-33.0 [facility] Comment on above: Performed By: #### C BCAD, CMP, VITD, LIPD #### [facility] [address] [place], [place] [id number] MCHC (RBC) [Mass/Vol] 32.7 g/dL Normal 32.0-36.0 [facility] Comment on above: Performed By: #### C BCAD, CMP, VITD, LIPD #### [facility] [address] [place], [place] [id number] MCV (RBC) [Entitic vol] 90 fL Normal 80-100 [facility] Comment on above: Performed By: #### C BCAD, CMP, VITD, LIPD #### [facility] [address] [place], [place] [id number] Monocytes (Bld) [#/Vol] 1.2 10*3/uL High 0.2-0.9 [facility] Comment on above: Performed By: #### C BCAD, CMP, VITD, LIPD #### [facility] [address] [place], [place] [id number] Monocytes/100 WBC (Bld) 14.0 % Normal [facility] Comment on above: Performed By: #### C BCAD, CMP, VITD, LIPD #### [facility] [address] [place], [place] [id number] Neutrophils (Bld) [#/Vol] 4.3 10*3/uL Normal 1.5-7.8 [facility] Comment on above: Performed By: #### C BCAD, CMP, VITD, LIPD #### [facility] [address] [place], [place] [id number] Neutrophils/100 WBC (Bld) 52.5 % Normal [facility] Special[facility] Comment on above: Performed By: #### C BCAD, CMP, VITD, LIPD #### [facility] [address] [place], [place] [id number] Platelet mean volume (Bld) [Entitic vol] 10.50 fL Normal 7.50-12.50 [facility] Comment on above: Performed By: #### C BCAD, CMP, VITD, LIPD #### [facility] [address] [place], [place] [id number] Platelets (Bld) [#/Vol] 308 10*3/uL Normal 140-400 [facility] Comment on above: Performed By: #### C BCAD, CMP, VITD, LIPD #### [facility] [address] [place], [place] [id number] RBC (Bld) [#/Vol] 5.07 10*6/uL Normal 4.20-5.80 [facility] Special[facility] Comment on above: Performed By: #### C BCAD, CMP, VITD, LIPD #### [facility] [address] [place], [place] [id number] RDW-SD 42.5 fL Normal 37.0-50.0 [facility] [employer] Comment on above: Performed By: #### C BCAD, CMP, VITD, LIPD #### [facility] [address] [place], [place] [id number] WBC (Bld) [#/Vol] 8.3 10*3/uL Normal 3.8-11.0 [facility] [place] [employer] Comment on above: Performed By: #### C BCAD, CMP, VITD, LIPD #### [facility] [address] [place], [place] [id number] Comprehensive Metabolic Pane antony 02-05-2022 Albumin [Mass/Vol] 4.1 g/dL Normal 3.6-5.1 [facility] [employer] Comment on above: Performed By: #### C BCAD, CMP, VITD, LIPD #### [facility] [address] [place], [place] [id number] Albumin/Globulin [Mass ratio] 1.4 {ratio} Normal 1.0-2.5 [facility] [employer] Comment on above: Performed By: #### C BCAD, CMP, VITD, LIPD #### [facility] [address] [place], [place] [id number] ALP [Catalytic activity/Vol] 64 U/L Normal 40-129 [facility] [employer] Comment on above: Performed By: #### C BCAD, CMP, VITD, LIPD #### [facility] [address] [place], [place] [id number] ALT [Catalytic activity/Vol] 23 U/L Normal 9-46 [facility] [employer] Comment on above: Result Comment: 08/07 Female reference range changed. Performed By: #### C BCAD, CMP, VITD, LIPD #### [facility] [address] [place], [place] [id number] Anion gap [Moles/Vol] 19 mmol/L Normal 12-20 [facility] [employer]patcher Comment on above: Result Comment: Effe ctive 09/12/2019 reference range changed. Performed By: #### C BCAD, CMP, VITD, LIPD #### [facility] [address], [place] [id number] AST [Catalytic activity/Vol] 40 U/L Normal 10-40 [facility] Comment on above: Performed By: #### C BCAD, CMP, VITD, LIPD #### [facility] [address], [place] [id number] Bilirubin [Mass/Vol] 1.44 mg/dL High 0.30-1.20 [facility] Comment on above: Performed By: #### C BCAD, CMP, VITD, LIPD #### [facility] [address], [place] [id number] BUN/CREA 16 Ratio Normal 6-22 [facility] Comment on above: Performed By: #### C BCAD, CMP, VITD, LIPD #### [facility] [address], [place] [id number] Calcium [Mass/Vol] 10.0 mg/dL Normal 8.6-10.2 [facility] Comment on above: Performed By: #### C BCAD, CMP, VITD, LIPD #### [facility] [address], [place] [id number] Chloride [Moles/Vol] 101 mmol/L Normal 98-107 [facility] Comment on above: Performed By: #### C BCAD, CMP, VITD, LIPD #### [facility] [address], [place] [id number] CO2 [Moles/Vol] 25 mmol/L Normal 20-31 [facility] Comment on above: Performed By: #### C BCAD, CMP, VITD, LIPD #### [facility] [address] [facility] [place] [place] [id number] Creatinine [Mass/Vol] 1.2 mg/dL Normal 0.7-1.4 [facility] Comment on above: Performed By: #### C BCAD, CMP, VITD, LIPD #### [facility] [address] [facility] [id number] eGFRAA 75 mL/min/1.73m2 Normal >60 [place] [employer] Radio Dispatcher Comment on above: Performed By: #### C BCAD, CMP, VITD, LIPD #### [facility] [address], [place] [id number] eGFRNAA 62 mL/min/1.73m2 Normal >60 [facility] [employer] Radio Dispatcher Comment on above: Performed By: #### C BCAD, CMP, VITD, LIPD #### [facility] [address], [place] [id number] Globulin (S) [Mass/Vol] 2.9 g/dL Normal 1.9-3.7 [facility] Radio Dispatcher Comment on above: Performed By: #### C BCAD, CMP, VITD, LIPD #### [facility] [address], [place] [id number] Glucose [Mass/Vol] 131 mg/dL High 65-99 [facility] [employer] Radio Dispatcher Comment on above: Result Comment: For FASTING Glucose --- ADA reference ranges: Normal 65-99 mg/dl Prediabetes 100-125 Diabetes >/= 126 Performed By: #### C BCAD, CMP, VITD, LIPD #### [facility] [address], [place] [id number] Potassium [Moles/Vol] 4.0 mmol/L Normal 3.5-5.5 [facility] Radio Dispatcher Comment on above: Performed By: #### C BCAD, CMP, VITD, LIPD #### [facility] [address], [place] [id number] Protein [Mass/Vol] 7.0 g/dL Normal 6.1-8.1 [facility] [employer] Radio Dispatcher Comment on above: Performed By: #### C BCAD, CMP, VITD, LIPD #### [facility] [address], [place] [id number] Sodium [Moles/Vol] 141 mmol/L Normal 135-146 [facility] [employer] Radio Dispatcher Comment on above: Performed By: #### C BCAD, CMP, VITD, LIPD #### [facility] [address], [place] [id number] Urea nitrogen [Mass/Vol] 19 mg/dL Normal 7-25 [facility] Radio Dispatcher Comment on above: Performed By: #### C BCAD, CMP, VITD, LIPD #### [facility] [address], [place] [id number] Lipid Panelon 02-05-2022 Cholesterol [Mass/Vol] 140 mg/dL Normal 125-200 [facility] Comment on above: Result Comment: Low risk < 200mg/dL Borderline risk 201-239 mg/dl High risk > or equal to 240 Performed By: #### C BCAD, CMP, VITD, LIPD #### [facility] [address], [place] [id number] Cholesterol in HDL [Mass/Vol] 46 mg/dL Normal >40 [facility] [employer] Radio Dispatcher Comment on above: Result Comment: High Cardiovascular Risk HDL <40 mg/dL Low Cardiovascular Risk HDL > or equal to 60 mg/dl Performed By: #### C BCAD, CMP, VITD, LIPD #### [facility] [address], [place] [id number] Cholesterol in LDL [Mass/Vol] 70 mg/dL Normal [facility] Specialist Comment on above: Result Comment: LDL ATP III CLASSIFICATION LDL less than 100 mg/dl Optimal LDL 100-129 mg/dl Near or above optimal LDL 130-159 Borderline high LDL 160-189 High LDL greater than 189 mg/dl Very High Performed By: #### C BCAD, CMP, VITD, LIPD #### [facility] [address], [place] [id number] Cholesterol in VLDL [Mass/Vol] 24 mg/dL Normal [facility] [employer] Radio Dispatcher Comment on above: Performed By: #### C BCAD, CMP, VITD, LIPD #### [facility] [address], [place] [id number] Cholesterol.total/Ch olesterol in HDL [Mass ratio] 3 {ratio} Normal [facility] Specialist Comment on above: Performed By: #### C BCAD, CMP, VITD, LIPD #### [facility] [address], [place] [id number] Triglyceride [Mass/Vol] 119 mg/dL Normal 30-150 [facility] [employer] Radio Dispatcher Comment on above: Result Comment: TRIG ATPIII CLASSIFICATIONS TRIG less than 150 mg/dl Normal TRIG 150-199 mg/dl Borderline High TRIG 200-500 mg/dl High TRIG greather than 500 mg/dl Very High Performed By: #### C BCAD, CMP, VITD, LIPD #### [facility] [address] [place], [place] [id number] PSA SCREEN (MEDICARE)on TPSA 0.789 ng/mL Normal <4.000 [facility] [employer] Comment on above: Result Comment: PSA Test Method: ECLIA/Mily e 601 Performed By: #### P #### [facility] [address] [place], [place] [id number] Vitamin D 25-OHon 02-05-2022 VIT D 25 OH 38 ng/ml Normal >29 [facility] [employer] Comment on above: Result Comment: Glenys min D Status Deficiency <20 ng/mL Insufficiency 20-29 ng/mL Optimal 30-100 ng/mL Possible Toxicity >=150 ng/mL Performed By: #### C BCAD, CMP, VITD, LIPD #### [facility] [address] [place], [place] [id number] GLUCOSE-POCTon 11-20-2017 Glucose mass conc 123 mg/dL High 74 - 99 [facility] Comment on above: Performed By: #### G SHELLI ####[facility] [id number] [place] [address] Glucose mass conc 125 mg/dL High 74 - 99 [facility] Comment on above: Performed By: #### G SHELLI ####[facility] [id number] [place] [address] Vital Signs Date Time Vital Sign Value Performing Clinician Facility 04-27-2023 11:52-0400 Blood Pressure Location Bhupinder GUY [facility] 04-27-2023 11:52-0400 Diastolic blood pressure 70 mm[Hg] Bhupinder GUY [facility] 04-27-2023 11:52-0400 Heart rate 49 /min Bhupinder GUY [facility] 04-27-2023 11:52-0400 SaO2% (BldA) [Mass fraction] 95 % Bhupinder GUY [facility] 04-27-2023 11:52-0400 Systolic blood pressure 120 mm[Hg] Bhupindermackenzie GUY [facility] 09-12-2022 11:31-0500 Blood Pressure Location Bhupinder Guy [facility] 09-12-2022 11:31-0500 Diastolic blood pressure 76 mm[Hg] Bhupinder Guy [facility] 09-12-2022 11:31-0500 Heart rate 80 /min Bhupinder Guy [facility] 09-12-2022 11:31-0500 SaO2% (BldA) [Mass fraction] 97 % Bhupinder Guy [facility] 09-12-2022 11:31-0500 Systolic blood pressure 122 mm[Hg] Bhupinder Guy [facility] 07-09-2022 14:27-0400 Blood Pressure Location Rodriguez SALAM [facility] 07-09-2022 14:27-0400 Body temperature 97.34 [degF] Rodriguez SALAM [facility] 07-09-2022 14:27-0400 Diastolic blood pressure 85 mm[Hg] Rodriguez SALAM [facility] 07-09-2022 14:27-0400 Heart rate 68 /min Rodriguez SALAM [facility] 07-09-2022 14:27-0400 Respiratory rate 14 /min Rodriguez SALAM [facility] 07-09-2022 14:27-0400 SaO2% (BldA) [Mass fraction] 96 % Rodriguez SALAM [facility] 07-09-2022 14:27-0400 Systolic blood pressure 135 mm[Hg] Rodriguez SALAM [facility] 07-09-2022 14:20-0400 Blood Pressure Location Rodriguez SALAM [facility] 07-09-2022 14:20-0400 Diastolic blood pressure 93 mm[Hg] Rodriguez SALAM [facility] 07-09-2022 14:20-0400 Heart rate 72 /min Rodriguez SALAM [facility] 07-09-2022 14:20-0400 Respiratory rate 14 /min Rodriguez SALAM [facility] 07-09-2022 14:20-0400 SaO2% (BldA) [Mass fraction] 95 % Rodriguez SALAM [facility] 07-09-2022 14:20-0400 Systolic blood pressure 140 mm[Hg] Rodriguez SALAM [facility] 07-09-2022 14:15-0400 Blood Pressure Location Rodriguez SALAM [facility] 07-09-2022 14:15-0400 Diastolic blood pressure 88 mm[Hg] Rdoriguez SALAM [facility] 07-09-2022 14:15-0400 Heart rate 70 /min Rodriguez SALAM [facility] 07-09-2022 14:15-0400 Respiratory rate 14 /min Rodriguez SALAM [facility] 07-09-2022 14:15-0400 SaO2% (BldA) [Mass fraction] 97 % Rodriguez SALAM [facility] 07-09-2022 14:15-0400 Systolic blood pressure 133 mm[Hg] Rodriguez SALAM [facility] 07-09-2022 14:02-0400 Body temperature 97.34 [degF] Rodriguez SALAM [facility] 07-09-2022 13:50-0400 Respiratory rate 16 /min Rodriguez SALAM [facility] 07-09-2022 13:03-0400 Body temperature 97.34 [degF] Rodriguez SALAM [facility] 03-12-2022 10:26-0400 Blood Pressure Location Barb PORTILLO [facility] 03-12-2022 10:26-0400 Diastolic blood pressure 75 mm[Hg] Barbab BOWENSG [facility] 03-12-2022 10:26-0400 Heart rate 79 /min Barbab PORTILLO [facility] 03-12-2022 10:26-0400 Respiratory rate 18 /min Barbab BOWENSG [facility] 03-12-2022 10:26-0400 SaO2% (BldA) [Mass fraction] 96 % Barb BOWENSG [facility] 03-12-2022 10:26-0400 Systolic blood pressure 133 mm[Hg] Barbab BOWENSG [facility] 12-19-2021 13:56-0400 Diastolic blood pressure 80 mm[Hg] Rodriguez SALAM [facility] 12-19-2021 13:56-0400 Systolic blood pressure 160 mm[Hg] Rodriguez SALAM [facility] 12-03-2021 11:37-0400 Blood Pressure Location Fuad Kwon Jr. [facility] 12-03-2021 11:37-0400 Diastolic blood pressure 95 mm[Hg] Fuad Kwon Jr. [facility] 12-03-2021 11:37-0400 Heart rate 76 /min Fuad Kwon Jr. [facility] 12-03-2021 11:37-0400 Respiratory rate 16 /min Fuad Kwon Jr. [facility] 12-03-2021 11:37-0400 Systolic blood pressure 155 mm[Hg] Fuad Kwon Jr. [facility] Encounters Encounter Date Encounter Type Care Provider Facility Start: 09-21-2023 ambulatory SHANTELL COBOS Not Avail able Start: 09-18-2023 End: 09-18-2023 ambulatory ANNIE M MEDVES Not Available Start: 09-15-2023 End: 09-15-2023 ambulatory SHANTELL COBOS Not Available Start: 09-04-2023 End: 09-04-2023 ambulatory KANU ABRAHAM Not Available Start: 08-27-2023 End: 08-27-2023 ambulatory ANNIE M MEDVES Not Available Start: 08-25-2023 End: 08-25-2023 ambulatory ANNIE M MEDVES Not Available Start: 08-14-2023 End: 08-15-2023 ambulatory Kanu Abraham Facility:[facility] Start: 08-14-2023 End: 08-14-2023 Patient encounter procedure Kanu Abraham [facility] Start: 04-27-2023 End: 04-28-2023 ambulatory Bhupinder GUY Facility:[facility] Start: 04-27-2023 End: 04-27-2023 Patient encounter procedure Bhupinder Ac MALENA [facility] Start: 09-12-2022 End: 09-13-2022 ambulatory Bhupinder Ac MALENA Facility:[facility] Start: 09-12-2022 End: 09-12-2022 Patient encounter procedure Bhupinder Ac Malena [facility] Start: 07-09-2022 End: 07-09-2022 Patient encounter procedure Rodriguezvicky FREEDMAN [facility] Start: 03-12-2022 End: 03-12-2022 Patient encounter procedure Barb PORTILLO [facility] Start: 12-19-2021 End: 12-19-2021 Patient encounter procedure Rodriguezvicky FREEDMAN [facility] Start: 12-03-2021 End: 12-03-2021 Patient encounter procedure Fuad Kwon Jr. [facility] Start: 09-02-2021 End: 12-03-2021 Patient encounter procedure Kanu Abraham [facility] Start: 11-20-2017 End: 11-20-2017 Ambulatory Kavya Soriano Facility:[facility] Procedures Date Procedure Procedure Detail Performing Clinician Start: 07-09-2022 Colonoscopy Jennifer FREEDMAN Start: 08-19-2021 Esophagogastroduodenoscopy Kanu Abraham Start: 08-12-2021 Cardiac catheterization Kanu Abraham Start: 05-19-2019 Colonoscopy Kanu Abraham Start: 05-19-2019 Esophagogastroduodenoscopy Kanu Abraham Start: 11-20-2017 Anesthesia upper gi endoscopic px nos Kavya Faulx Start: 11-20-2017 Esophagogastroduodenoscopy transoral diagnostic Kavya Faulx Start: 08-11-2017 Esophagogastroduodenoscopy Kanu Abraham Comment on above: Antral gastritis, duodenitis, gastric po lyp Start: 06-07-2015 septoplasty by removal of bilateral sumi bullosa and bilateral image guided microdebrider assisted maxillary antrostomy with total ethmoidectomy and spenoidectomy as well as a right frontal sinus exploration Kanu Abraham Start: 06-22-2014 direct laryngoscopy and biopsy Kanu Conrad robin Start: 10-11-2013 laparoscopic cholecystectomy with intraoperative cholangiogram Kanu Abraham Start: 05-08-2008 Repair of musculotendinous cuff of shoulder Rotator cuff repair( Confirmed ) Kanu Abraham BICEP TENDON REPAIR 2 Kanu Abraham Comment on above: LEFT FESS - Functional en doscopic sinus surgery - posterior ethmoidectomy Kanu Abraham knee scope Kanu Abraham right shoulder titanium screws Kanu Abraham Immunizations Immunization Date Immunization Notes Care Provider Fa cility 12-20-2021 SARS-CoV-2 mRNA (gpafctkrwwe-wlpl-lhkm ose) vaccine Rodriguez [employer] [facility] 06-18-2021 influenza virus vaccine, unspecified formulation [facility] 06-14-2021 SARS-CoV-2 (COVID-19 ) mRNA BNT-162b2 vax Rodriguez [facility] 06-07-2021 influenza virus vaccine, unspecified formulation Kanu Abraham [facility] 11-28-2020 COVID-19, mRNA, LNP- S, PF, 30 mcg/0.3 mL dose; Translations: [Pfizer-BioNTech COVID-19 Vaccine] Kanu Abraham [facility] 10-31-2020 COVID-19, mRNA, LNP- S, PF, 30 mcg/0.3 mL dose; Translations: [Pfizer-BioNTech COVID-19 Vaccine] Kanu Tavaresby [facility] 06-13-2020 influenza virus vaccine, unspecified formulation [facility] 06-01-2020 pneumococcal conjuga te vaccine, 13 valent [facility] 12-21-2019 tetanus toxoid, reduced diphtheria toxoid, and acellular pertussis vaccine, adsorbed [facility] 07-19-2018 influenza virus vaccine, unspecified formulation Rodriguez [facility] NEGATED: Highlighted row has not occurred!06-02-2022 influenza virus vaccine, unspecified formulation Rodriguez [employer] [facility] Payers Date Payer Category Payer Medicare [id number] 2020 Medicare [id number] 2020 Unknown [id number] 1955 Unknown [id number] 2.16.8 [id number] 1955 Unknown [id number] 2.16.8 [id number] 1955 Unknown [id number] 2.16.8 [id number] 1955 Unknown [id number] 2.16.8 [id number] 1955 Unknown [id number] 2.16.84 [id number] 1955 Unknown [id number] 2.16.84 [id number] 1955 Unknown [id number] 2.16.84 [id number] 1955 Unknown [id number] .[id number] 1955 Unknown [id number] 2.16.840 .[id number] 1955 Unknown [id number] [id number] 1955 Unknown [id number] Unknown [id number] Social History Date Type Detail Facility Start: 07-10-2020 End: 04-27-2023 Tobacco smoking status Never smoked tobacco (finding) [facility] Functional Status Date Assessment Result Facility 04-27-2023 Functional Status No [facility] 09-12-2022 Functional Status No [facility] 07-09-2022 Functional Status N/A [facility] 03-12-2022 Functional Status N/A [facility] Hospital Discharge instructions 07-09-2022 Note Date & Type Note Facility 07-09-2022 Hospital Discharg e instructions Patient Education 07/09/2022 14:12:40 Colonoscopy, Care After Surgery Salam (Custom) Colonoscopy Care After Surgery Please read the instructions outlined below and refer to this sheet in the next few weeks. These discharge instructions provide you with general information on caring for yourself after you leave the hospital. Your doctor may also give you specific instructions. While your treatment has been planned according to the most current medical practices available, unavoidable complications occasionally occur. If you have any problems or questions after discharge, please call your doctor. ACTIVITY You may resume your regular activity, but move at a slower pace for the next 24 hours. Take frequent rest periods for the next 24 hours. Walking will help get rid of the air and reduce the bloated feeling in your abdomen (belly). No driving for 24 hours (because of the anesthesia (medicine) used during the test). You may shower. Do not sign any important legal documents or operate any machinery for 24 hours (because of the anesthesia used during the test). NUTRITION Drink plenty of fluids. You may resume your normal diet as instructed by your doctor. Begin with a light meal and progress to your normal diet. Heavy or fried foods are harder to digest and may make you feel nauseated (sick to your stomach). Avoid alcoholic beverages for 24 hours or as instructed. MEDICATIONS You may resume your normal medications unless your doctor tells you otherwise. WHAT YOU CAN EXPECT TODAY Some feelings of bloating in the abdomen. Passage of more gas than usual. Spotting of blood in your stool or on the toilet paper. FOLLOW-UP Your doctor will discuss the results of your test with you. SEEK IMMEDIATE MEDICAL ATTENTION IF: There is more than a spotting of blood in your stool. There is abdominal distention (your abdomen is swollen). There is vomiting. You have a temperature over 101.5 F. There is abdominal pain or discomfort that is severe or gets worse throughout the day. 07/09/2022 14:12:40 Colon Polyps Colon Polyps Polyps are tissue growths inside the body. Polyps can grow in many places, including the large intestine (colon). A polyp may be a round bump or a mushroom-shaped growth. You could have one polyp or several. Most colon polyps are noncancerous (benign). However, some colon polyps can become cancerous over time. Finding and removing the polyps early can help prevent this. What are the causes? The exact cause of colon polyps is not known. What increases the risk? You are more likely to develop this condition if you: Have a family history of colon cancer or colon polyps. Are older than 50 or older than 45 if you are . Have inflammatory bowel disease, such as ulcerative colitis or Crohn's disease. Have certain hereditary conditions, such as: ?Familial adenomatous polyposis. ?Hardin syndrome. ?Turcot syndrome. ?Peutz Jeghers syndrome. Are overweight. Smoke cigarettes. Do not get enough exercise. Drink too much alcohol. Eat a diet that is high in fat and red meat and low in fiber. Had childhood cancer that was treated with abdominal radiation. What are the signs or symptoms? Most polyps do not cause symptoms. If you have symptoms, they may include: Blood coming from your rectum when having a bowel movement. Blood in your stool. The stool may look dark red or black. Abdominal pain. A change in bowel habits, such as constipation or diarrhea. How is this diagnosed? This condition is diagnosed with a colonoscopy. This is a procedure in which a lighted, flexible scope is inserted into the anus and then passed into the colon to examine the area. Polyps are sometimes found when a colonoscopy is done as part of routine cancer screening tests. How is this treated? Treatment for this condition involves removing any polyps that are found. Most polyps can be removed during a colonoscopy. Those polyps will then be tested for cancer. Additional treatment may be needed depending on the results of testing. Follow these instructions at home: Lifestyle Maintain a healthy weight, or lose weight if recommended by your health care provider. Exercise every day or as told by your health care provider. Do not use any products that contain nicotine or tobacco, such as cigarettes and e-cigarettes. If you need help quitting, ask your health care provider. If you drink alcohol, limit how much you have: ?0 1 drink a day for women. ? 0 2 drinks a day for men. Be aware of how much alcohol is in your drink. In the [place] one drink equals one 12 oz bottle of beer (355 mL), one 5 oz glass of wine (148 mL), or one 1 oz shot of hard liquor (44 mL). Eating and drinking Eat foods that are high in fiber, such as fruits, vegetables, and whole grains. Eat foods that are high in calcium and vitamin D, such as milk, cheese, yogurt, eggs, liver, fish, and broccoli. Limit foods that are high in fat, such as fried foods and desserts. Limit the amount of red meat and processed meat you eat, such as hot dogs, sausage, anthony, and lunch meats. General instructions Keep all follow-up visits as told by your health care provider. This is important. ?This includes having regularly scheduled colonoscopies. ?Talk to your health care provider about when you need a colonoscopy. Contact a health care provider if: You have new or worsening bleeding during a bowel movement. You have new or increased blood in your stool. You have a change in bowel habits. You lose weight for no known reason. Summary Polyps are tissue growths inside the body. Polyps can grow in many places, including the colon. Most colon polyps are noncancerous (benign), but some can become cancerous over time. This condition is diagnosed with a colonoscopy. Treatment for this condition involves removing any polyps that are found. Most polyps can be removed during a colonoscopy. This information is not intended to replace advice given to you by your health care provider. Make sure you discuss any questions you have with your health care provider. Document Released: 05/20/2005 Document Revised: 12/09/2018 Document Reviewed: 12/09/2018 [employer] Patient Education 2020 [employer] 07/09/2022 14:12:40 Hemorrhoids, Gmmw-ii-Tdgh Hemorrhoids Hemorrhoids are swollen veins that may develop: In the butt (rectum). These are called internal hemorrhoids. Around the opening of the butt (anus). These are called external hemorrhoids. Hemorrhoids can cause pain, itching, or bleeding. Most of the time, they do not cause serious problems. They usually get better with diet changes, lifestyle changes, and other home treatments. What are the causes? This condition may be caused by: Having trouble pooping (constipation). Pushing hard (straining) to poop. Watery poop (diarrhea). . Being very overweight (obese). Sitting for long periods of time. Heavy lifting or other activity that causes you to strain. Anal sex. Riding a bike for a long period of time. What are the signs or symptoms? Symptoms of this condition include: Pain. Itching or soreness in the butt. Bleeding from the butt. Leaking poop. Swelling in the area. One or more lumps around the opening of your butt. How is this diagnosed? A doctor can often diagnose this condition by looking at the affected area. The doctor may also: Do an exam that involves feeling the area with a gloved hand (digital rectal exam). Examine the area inside your butt using a small tube (anoscope). Order blood tests. This may be done if you have lost a lot of blood. Have you get a test that involves looking inside the colon using a flexible tube with a camera on the end (sigmoidoscopy or colonoscopy). How is this treated? This condition can usually be treated at home. Your doctor may tell you to change what you eat, make lifestyle changes, or try home treatments. If these do not help, procedures can be done to remove the hemorrhoids or make them smaller. These may involve: Placing rubber bands at the base of the hemorrhoids to cut off their blood supply. Injecting medicine into the hemorrhoids to shrink them. Shining a type of light energy onto the hemorrhoids to cause them to fall off. Doing surgery to remove the hemorrhoids or cut off their blood supply. Follow these instructions at home: Eating and drinking Eat foods that have a lot of fiber in them. These include whole grains, beans, nuts, fruits, and vegetables. Ask your doctor about taking products that have added fiber (fibersupplements). Reduce the amount of fat in your diet. You can do this by: ?Eating low-fat dairy products. ?Eating less red meat. ?Avoiding processed foods. Drink enough fluid to keep your pee (urine) pale yellow. Managing pain and swelling Take a warm-water bath (sitz bath) for 20 minutes to ease pain. Do this 3 4 times a day. You may do this in a bathtub or using a portable sitz bath that fits over the toilet. If told, put ice on the painful area. It may be helpful to use ice between your warm baths. ?Put ice in a plastic bag. ?Place a towel between your skin and the bag. ?Leave the ice on for 20 minutes, 2 3 times a day. General instructions Take bxqt-div-iwwetzo and prescription medicines only as told by your doctor. ?Medicated creams and medicines may be used as told. Exercise often. Ask your doctor how much and what kind of exercise is best for you. Go to the bathroom when you have the urge to poop. Do not wait. Avoid pushing too hard when you poop. Keep your butt dry and clean. Use wet toilet paper or moist towelettes after pooping. Do not sit on the toilet for a long time. Keep all follow-up visits as told by your doctor. This is important. Contact a doctor if you: Have pain and swelling that do not get better with treatment or medicine. Have trouble pooping. Cannot poop. Have pain or swelling outside the area of the hemorrhoids. Get help right away if you have: Bleeding that will not stop. Summary Hemorrhoids are swollen veins in the butt or around the opening of the butt. They can cause pain, itching, or bleeding. Eat foods that have a lot of fiber in them. These include whole grains, beans, nuts, fruits, and vegetables. Take a warm-water bath (sitz bath) for 20 minutes to ease pain. Do this 3 4 times a day. This information is not intended to replace advice given to you by your health care provider. Make sure you discuss any questions you have with your health care provider. Document Released: 06/02/2009 Document Revised: 09/01/2019 Document Reviewed: 01/13/2019 [employer] Patient Education [employer] Follow Up Care 06/02/2022 14:00:04 With:Jennifer FREEDMAN Address: [facility] [address] [place] [address] Business (1) When: Unknown Comments:Office to call for followup.Call for any problems. [facility] Evaluation + Plan note 07-09-2022 Note Date & Type Note Facility 07-09-2022 Evaluation + Plan note Extrac prince from: Title:[facility] POSTOP Author:Eugene Dominguez DO Date: 07/09/22 Plan Transfer/ Discharge: Patient can be discharged from PACU when criteria met. Condition good. Extracted from: Title:[facility] PREOP ENDO NOTE Author:Nikki Dominguez DO Date:07/09/22 Plan [place] [employer]hesi[employer] (ASA) physical status classification: Class III. Anesthetic Preoperative Plan Anesthesia: Monitored anesthesia care and general anesthesia possible. Anesthetic plan, risks, benefits, and alternatives discussed with the patient and/or family. Pt. and/or family present and agree to proceed as planned.. Risks discussed including heart, lung, nerve damage. Risks of bleeding, dental injury, hospitalization, and general injury discussed. . Future Appointments Appointment Date:09/12/2022 11:30:00 AM Scheduled Provider:Bhupinder Guy MD Location:[facility] Appointment Type:Cardiology Follow Up ([facility]) Future Scheduled Tests Laboratory* Basic Metabolic Panel 08/10/21 * CBC w/ Auto Diff 08/10/21 * Lipid Panel 08/26/21 Radiology* CV Cardiovascular 08/16/21 [facility] Hospital Discharge instructions 12-03-2021 Note Date & Type Note Facility 12-03-2021 Hospital Discharg e instructions Patient Education 12/03/2021 12:03:50 Hematuria, Adult Hematuria, Adult Hematuria is blood in the urine. Blood may be visible in the urine, or it may be identified with a test. This condition can be caused by infections of the bladder, urethra, kidney, or prostate. Other possible causes include: Kidney stones. Cancer of the urinary tract. Too much calcium in the urine. Conditions that are passed from parent to child (inherited conditions). Exercise that requires a lot of energy. Infections can usually be treated with medicine, and a kidney stone usually will pass through your urine. If neither of these is the cause of your hematuria, more tests may be needed to identify the cause of your symptoms. It is very important to tell your health care provider about any blood in your urine, even if it is painless or the blood stops without treatment. Blood in the urine, when it happens and then stops and then happens again, can be a symptom of a very serious condition, including cancer. There is no pain in the initial stages of many urinary cancers. Follow these instructions at home: Medicines Take bwef-ink-jtetirq and prescription medicines only as told by your health care provider. If you were prescribed an antibiotic medicine, take it as told by your health care provider. Do not stop taking the antibiotic even if you start to feel better. Eating and drinking Drink enough fluid to keep your urine clear or pale yellow. It is recommended that you drink 3 4 quarts (2.8 3.8 L) a day. If you have been diagnosed with an infection, it is recommended that you drink cranberry juice in addition to large amounts of water. Avoid caffeine, tea, and carbonated beverages. These tend to irritate the bladder. Avoid alcohol because it may irritate the prostate (men). General instructions If you have been diagnosed with a kidney stone, follow your health care provider's instructions about straining your urine to catch the stone. Empty your bladder often. Avoid holding urine for long periods of time. If you are female: ?After a bowel movement, wipe from front to back and use each piece of toilet paper only once. ?Empty your bladder before and after sex. Pay attention to any changes in your symptoms. Tell your health care provider about any changes or any new symptoms. It is your responsibility to get your test results. Ask your health care provider, or the department performing the test, when your results will be ready. Keep all follow-up visits as told by your health care provider. This is important. Contact a health care provider if: You develop back pain. You have a fever. You have nausea or vomiting. Your symptoms do not improve after 3 days. Your symptoms get worse. Get help right away if: You develop severe vomiting and are unable take medicine without vomiting. You develop severe pain in your back or abdomen even though you are taking medicine. You pass a large amount of blood in your urine. You pass blood clots in your urine. You feel very weak or like you might faint. You faint. Summary Hematuria is blood in the urine. It has many possible causes. It is very important that you tell your health care provider about any blood in your urine, even if it is painless or the blood stops without treatment. Take wbhx-cer-hkluwbf and prescription medicines only as told by your health care provider. Drink enough fluid to keep your urine clear or pale yellow. This information is not intended to replace advice given to you by your health care provider. Make sure you discuss any questions you have with your health care provider. Document Released: 08/24/2006 Document Revised: 01/18/2020 Document Reviewed: 09/26/2017 [employer] Patient Education 2020 [employer] Follow Up Care 10/29/2021 11:04:57 With:Doyle Pop MD, [facility] Address: When: only if needed [facility] Evaluation + Plan note LaboratoryRadiology Note Date & Type Note Facility Evaluation + Plan note Future Appointments Appointment Date:12/19/2021 02:00:00 PM Scheduled Provider:Jennifer FREEDMAN MD Location:[facility] [place] [facility] Appointment Type:[facility] Follow Up Appointment Date:03/12/2022 10:30:00 AM Scheduled Provider:Barb PORTILLO CNP [facility] Appointment Type:Cardiology Follow Up ([facility]) Future Scheduled TestsBasic Metabolic Panel 08/10/21CBC w/ Auto Diff 08/10/21Lipid Panel 08/26/21CV Cardiovascular 08/16/21 [facility] Evaluation + Plan note LaboratoryRadiology Note Date & Type Note Facility Evaluation + Plan note Future Appointments Appointment Date:03/12/2022 10:30:00 AM Scheduled Provider:Barb PORTILLO CNP Location[facility] Appointment Type:Cardiology Follow Up ([facility]) Future Scheduled TestsBasic Metabolic Panel 08/10/21CBC w/ Auto Diff 08/10/21Lipid Panel 08/26/21CV Cardiovascular 08/16/21 [facility] Evaluation + Plan note LaboratoryRadiology Note Date & Type Note Facility Evaluation + Plan note Future Appointments Appointment Date:09/12/2022 11:30:00 AM Scheduled Provider:Bhupinder Guy MD Location:[facility] Appointment Type:Cardiology Follow Up ([facility]) Future Scheduled TestsBasic Metabolic Panel 08/10/21CBC w/ Auto Diff 08/10/21Lipid Panel 08/26/21CV Cardiovascular 08/16/21 [facility] Evaluation + Plan note Note Date & Type Note Facility Evaluation + Plan note Future Appointments Appointment Date:10/22/2023 11:45:00 AM Scheduled Provider:Bhupinder GUY MD Location:[facility] Appointment Type:Cardiology Follow Up ([facility]) [facility] Hospital course Narrative Note Date & Type Note Facility Hospital course Narrative No data available for this section [facility] Hospital Discharge instructions Note Date & Type Note Facility Hospital Discharge instructions No data available for this section [facility] Progress note Note Date & Type Note Facility Progress note No data available for this section [facility] Summary Purpose Family History No Family History Records FoundNo Family History Records Found No data available for this section No Family History Records FoundNo Family History Records Found Advance Directives No Advanced Directives Records FoundNo Advanced Directives Records FoundNo Advanced Directives Records FoundNo Advanced Directives Records Found Additional Source Comments (unrecognized sect ion and content) No Status Records FoundNo Status Records FoundNo Status Records FoundNo Status Records Found INFORMATION SOURCE (unrecogn ized section and content) DATE CREATED AUTHOR 02/26/2018 [facility] DATE CREATED AUTHOR AUTHOR'S ORGANIZ ATION 02/06/[address] [facility] dical Specialist DATE CREATED AUTHOR AUTHOR'S ORGANIZ ATION [facility]16/2023 [facility] DATE CREATED AUTHOR AUTHOR'S ORGANIZ ATION 09/22/[address] [facility] dical Specialists EPIC Care Team (unrecognized sect ion and content) Personnel Name: Kanu Abraham MD Address: [address] [place] [address] Name: Darleen Mcdaniel Personnel Name: Kanu Abraham MD Address: Address: [address] [place] [address] Name: Darleen Mcdaniel Personnel Name: Kanu Abraham MD Address: Address: [address] [place] [address] Name: Darleen Mcdaniel Personnel Name: Kanu Abraham MD Address: Address: [address] [place] [address] Name: Darleen Mcdaniel Personnel Name: Kanu Abraham MD Address: Address: [address] [place] [address] Name: Darleen Mcdaniel Personnel Name: Kanu Abraham MD Address: Address: [address] [place] [address] Name: Darleen Mcdaniel FOR RECORDS PERTAINING TO PATIENTS WHO ARE OR HAVE BEEN ENROLLED IN A CHEMICAL DEPENDENCY/SUBSTANCEABUSE PROGRAM, SOME INFORMATION MAY BE OMITTED. This clinical summary was aggregated from multiple sources. Caution should be exercised in using it in the provision of clinical care. This summary normalizes information from multiple sources, and as a consequence, information in this document may materially change the coding, format and clinical context of patient data. In addition, data may be omitted in some cases. CLINICAL DECISIONS SHOULD BE BASED ON THE PRIMARY CLINICAL RECORDS. [employer] provides no warranty or guarantee of the accuracy or completeness of information in this document.
--- NOTE | 2023-09-22 11:27 | VEIN_ITS ---
Patient Name: ELLYN LOW MR#: [id number] : 1955 Exam Date: 09/22/2023 Ordering Doctor: DR JONAS LOVE M.D. RADIOLOGY REPORT PROCEDURE: VC EXT VENOUS RT LMTD COMPARISON: VC EXT VENOUS RT LMTD, 05/12/2023. VC EXT VENOUS RT LMTD, 04/30/2023. INDICATIONS: Phlebitis of superficial veins of rt lower extremity I80.01 TECHNIQUE: Lower extremity lawson scale and Duplex Doppler evaluation of the deep venous system from the inguinal ligament through the calf veins. FINDINGS: REGION: Right lower extremity. THROMBI: Negative for DVT. No evidence of DVT. COMPRESSIBILITY: Normal compressibility. FLOW: Normal waveform and antegrade flow between 5 and 20 cm/s. OTHER: Normal CONCLUSION: No deep vein thrombus identified. Dictated by: Jonas Love MD on 09/22/2023 at 11:52 Approved by: Jonas Love MD on 09/22/2023 at 11:52
--- NOTE | 2023-09-22 11:28 | VEIN_ITS ---
Patient Name: ELLYN LOW MR#: [id number] : 1955 Exam Date: 09/22/2023 Ordering Doctor: DR JONAS LOVE M.D. RADIOLOGY REPORT PROCEDURE: [facility] EST LMTD [facility] - OFFICE VISIT FOLLOW UP COMPARISON: [facility] EST LMTD, 05/26/2023. [facility] EST LMTD, 05/12/2023. PROGRESS NOTES: The patient reports new swelling and pain along the medial right ankle and foot. No precipitating factors. The patient's pain and swelling has significantly improved over the past several days. Physical exam demonstrates some mild subcutaneous edema of the right ankle and foot primarily within the medial and dorsal foot. No thrombosed veins. No active ulceration. No erythema or warmth to suggest cellulitis or thrombophlebitis. Review of the ultrasound performed the same day demonstrates no deep or superficial vein thrombus. The etiology of his acute pain and swelling is unknown. Given the significant improvement, no treatment was recommended beyond normal use of his compression stocking. VEIN/[facility] EST LMTD IMPRESSION: 1. New onset pain and swelling of the right foot and ankle with an unknown etiology 2. No deep or superficial vein thrombus observed PLAN: No treatment recommended Nurse notes, history and physical were reviewed and confirmed, see attached forms. The nurse was present throughout the physical exam and consultation Dictated by: Jonas Love MD on 09/22/2023 at 11:56 Approved by: Jonas Love MD on 09/22/2023 at 11:59
== END 2023-09-22 11:24 | disposition home or self-care (01) ==
LOC: VC 11:24
PROVIDERS: PCP Radiology Diagnostic Radiology; Visit Provider Radiology Diagnostic Radiology
DX: I80.01 Phlebitis and thrombophlebitis of superficial vessels of right lower extremity (principal)
CPT/HCPCS: 93971; G0463